=== PATIENT | male | born 1930 | race Caucasian/White ===

== ENCOUNTER 2016-11-29 11:26 | Inpatient (IN) | payer MEDICARE, OTHER ==
[~2016-11-29] VITALS: Ht 198.1 cm; Wt 160.0 kg
[2016-11-29] MEDS ORDERED: ARIC10TA PO (11:42)
[2016-11-29] MEDS ORDERED: CIAL2.5T PO (11:42)
[2016-11-29] MEDS ORDERED: ASPI-85 PO (11:42)
[2016-11-29] MEDS ORDERED: ZOCO20TA PO (11:42)
[2016-11-29] MEDS ORDERED: hytrin (11:42)
[2016-11-29] MEDS ORDERED: METF500T PO (11:42)
[2016-11-29] MEDS ORDERED: ZETI10TA2 PO (11:42)
[2016-11-29] MEDS ORDERED: METO50TA2 PO (11:42)
[2016-11-29] MEDS ORDERED: MEMA1TAB2 PO (11:42)
[2016-11-29] MEDS ORDERED: VITA200038 PO (11:42)
[2016-11-29] MEDS ORDERED: LISI40TAB PO (11:42)
[2016-11-29] MEDS ORDERED: [UNRECOGNIZED DRUG - CODE] PO (11:42)
[2016-11-29] MEDS ORDERED: FISH120012 PO (11:42)
[2016-11-29] MEDS ORDERED: ASPI32ECTA PO (11:43)
[2016-11-29 12:08] LABS: INR 1.3
[2016-11-29 12:12] LABS: DIFF SLIDE NUMBER 209; MEAN CORPUSCULAR HEMOGLOBIN 30.9 pg (27.0-33.0); MEAN CORPUSCULAR HGB CONC 30.9 g/dl (32.0-36.5); MEAN CORPUSCULAR VOLUME 100.1 fl (80.0-96.0); RED CELL DISTRIBUTION WIDTH 15.7 % (11.5-14.5); WHITE BLOOD COUNT 6.8 K/mm3 (4.0-10.0)
[2016-11-29 12:31] LABS: PLATELET COUNT, AUTOMATED 72 k/mm3 (150-450)
[2016-11-29 12:33] LABS: BASOPHILS 2 % (0-4); EOSINOPHILS 3 % (0-5)
[2016-11-29 12:34] LABS: OVALOCYTES 1+
--- NOTE | 2016-11-29 12:36 | REP ---
PORTABLE CHEST: No comparison. Single AP portable view of the chest is performed. There is cardiomegaly and vascular congestion. There may be some mild atelectasis/infiltrate in the right lung base. Multiple sternal wires are present. There is ectasia and tortuosity of the thoracic aort. IMPRESSION: Cardiomegaly and vascular congestion. Possible right basilar atelectasis/infiltrate. Signed by Kp Alcazar MD 11/29/2016 05:37 P
[2016-11-29 12:37] LABS: ALBUMIN/GLOBULIN RATIO 1.11 (1.00-1.93); ALKALINE PHOSPHATASE 187 U/L (45-117); ALT/SGPT 38 U/L (12-78); ANION GAP 5 MEQ/L (8-16); AST/SGOT 36 U/L (15-37); BILIRUBIN,DIRECT 0.4 MG/DL (0.0-0.2); BILIRUBIN,TOTAL 0.8 MG/DL (0.2-1.0); BLOOD UREA NITROGEN 31 MG/DL (7-18); CALCIUM LEVEL 8.4 MG/DL (8.8-10.2); CARBON DIOXIDE LEVEL 33 MEQ/L (21-32); CHLORIDE LEVEL 109 MEQ/L (98-107); CREATININE FOR GFR 1.21 MG/DL (0.70-1.30); GLOMERULAR FILTRATION RATE > 60.0 (>35); GLUCOSE, FASTING 178 MG/DL (83-110); POTASSIUM SERUM 4.4 MEQ/L (3.5-5.1); SODIUM LEVEL 147 MEQ/L (136-145); TOTAL PROTEIN 5.7 GM/DL (6.4-8.2)
[2016-11-29] MEDS ORDERED: FUROSEMIDE 40 MG/4 ML VIAL (J1940) IV ONE (14:45)
[2016-11-29] MEDS ORDERED: HEPARIN SOD (PORCINE) 5000 UNITS/ML VIAL SC SCH (15:00)
[2016-11-29] MEDS ORDERED: SOOTDRO2 OU (15:35)
[2016-11-29] MEDS ORDERED: TERB250T57 PO (15:35)
[2016-11-29] MEDS ORDERED: TERA10CA3 PO (15:35)
[2016-11-29] MEDS ORDERED: FURO40TA2 PO (15:35)
[2016-11-29] MEDS ORDERED: POTA20TA PO (15:35)
[2016-11-29] MEDS ORDERED: METO-207 PO (15:36)
[2016-11-29] MEDS ORDERED: DEXTROSE 50% 50 ML SYRINGE IV PRN (16:00)
[2016-11-29] MEDS ORDERED: GLUCOSE 4 GM CHEW TABLET PO PRN (16:00)
[2016-11-29] MEDS ORDERED: POLYVINYL ALCOHOL OPHTH SOLN 15 ML(LIQUITEARS) OU PRN (16:00)
[2016-11-29] MEDS ORDERED: AZITHROMYCIN 250 MG TAB PO ONE (16:00)
[2016-11-29] MEDS ORDERED: GLUCAGON FOR INJ 1 MG VIAL (J1610) SC PRN (16:00)
[2016-11-29 16:30] LABS: REASON FOR REVIEW COMPREHENSIVE REVIEW; RETIC HEMOGLOBIN CONTENT CHr 32.6 PG (24-36); RETICULOCYTE ABSOLUTE ADVIA212 66 x10(9)/L (17-77)
[2016-11-29 16:40] LABS: PERCENT SATURATION 15.1 % (19.7-37.4); TOTAL IRON BINDING CAPACITY 331 UG/DL (250-450)
--- NOTE | 2016-11-29 17:03 | REP ---
Bilateral lower extremity Duplex Doppler venous ultrasound: Real time compression and duplex Doppler interrogation of the bilateral lower extremity deep venous system is performed. Bilaterally, the common femoral, superficial femoral and popliteal veins are fully compressible with transducer pressure and demonstrate normal spontaneous and phasic flow, without evidence of deep venous thrombosis. Impression: No evidence of deep venous thrombosis of the bilateral lower extremity femoral popliteal venous system. The study is somewhat limited due to body habitus and edema, with distal femoral veins not well seen bilaterally. Signed by Kp Alcazar MD 11/29/2016 04:56 P
[2016-11-29] MEDS: cefTRIAXone SOD 2 GM in D5W MINI-BAG PLUS 50 ML IV SCH (17:18)
[2016-11-29] MEDS: HumaLOG INSULIN (NovoLOG) PER UNIT SC SCH ×2 (17:30→21:00)
--- NOTE | 2016-11-29 18:14 | HPE ---
DATE OF ADMISSION: 11/29/2016 PRIMARY CARE PHYSICIAN: None. ROOF MECHANIC: None. INPATIENT HOSPITALIST ATTENDING: Tomas Renner MD CHIEF COMPLAINT: Shortness of breath, lower extremity swelling. HISTORY OF PRESENTING ILLNESS: 86-year-old male with history of coronary artery disease (CAD), coronary artery bypass graft (CABG) successful 16 years ago, stent placement 10 years ago, BPH, obstructive sleep apnea (JAMIN), hypertension, diabetes, hypercholesterolemia, obesity, usually lives in [place] 3 months of the year, lives in [place] with no primary care physician or prover, has been having a 1 year history of increasing lower extremity edema with noncompliance with dietary salt intake and water intake. Has been in [place] in August, September, and October and just got back earlier this month with worsening lower extremity edema. Patient admits to eating out most of the time and has been bedridden for the past 1 month due to about a 50 pound weight gain at home in [place], unable to ambulate. Lower extremity edema has worsened and shortness of breath to the point that he is unable to get out of bed. He denies any chest pain, pressure or tightness. Denies any fever or chills, cough productive of sputum. Denies any nausea or vomiting or diarrhea. Appetite has been the same. Patient uses his continuous positive airway pressure (CPAP) at home. He is noncompliant with fluid restriction and salt intake and usually eats out with his second . She usually buys takeout food and gives it to him at home. In the emergency room (ER), he was found to have 3+ pitting edema, scrotal edema to the sacrum, BNP level of over 2000. Chest xray showing vascular congestion and possible right basilar atelectasis or infiltrate. Patient has recently seen his prover, was agreeable to taking Lasix twice a day with no significant improvement. On arrival to [place], patient had worsening symptoms prompting him to present to the emergency room for admission. PAST MEDICAL HISTORY: 1. CAD, CABG 16 years ago, 4 stents placed 10 years ago. 2. Hypertension. 3. Diabetes. 4. Obesity. 5. Hypercholesterolemia. 6. BPH. 7. Obstructive sleep apnea. 8. Transurethral resection of the prostate (TURP). 9. Dementia. PAST SURGICAL HISTORY: 1. CABG 16 years ago. 2. Stent placement 10 years ago. 3. Knee replacement. 4. Shoulder replacement. 5. TURP procedure. ALLERGIES: No known drug allergies. HOME MEDICATIONS: - aspirin 325 daily - vitamin D 2000 units daily - Aricept 10 twice a day - Zetia 10 daily - Lasix 40 daily - lisinopril 40 daily - metformin 500 mg daily - metoprolol 50 twice a day - Zocor 20 daily - eye solution - terazosin 10 nightly - terbinafine 250 daily SOCIAL HISTORY: Lives in [place] 3 months of the year. Lives in [place] with second . FULL CODE. 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 No history of cigarette use. No alcohol use. 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 FAMILY HISTORY: Noncontributory due to age. REVIEW OF SYSTEMS: 12-point system negative aside from positive findings on history of present illness (HPI). PHYSICAL EXAMINATION: Temperature 96.9, pulse 57, respiratory rate 22, blood pressure 160/74, 98% on 3 liters nasal cannula. Generally, patient is awake, alert, oriented to person, place, and time. He is answering questions appropriately. No respiratory distress or use of respiratory accessory muscles. No cyanosis. Pupils are round and reactive. Dry mucous membranes. Positive jugular venous distention. Bilateral rales chcf up. Diminished breath sounds. Heart S1, S2, sinus bradycardia. No murmurs or rubs. Abdomen is obese, soft, nontender, nondistended. Extremities 3+ pitting edema to the sacrum. Multiple excoriations bilateral lower extremities. Scrotal edema and pressure erythematous area on the sacrum. Multiple erythematous areas. Moist areas under abdominal folds. EKG: Sinus rhythm, ventricular rate of 49, low QRS in precordial leads, septal myocardial infarction (OK), probably old, OH interval 156. LABORATORY DATA: White count 6.8, hemoglobin 10.9, hematocrit 35, platelet count 72. Sodium 147, potassium 4.4, chloride 109, bicarbonate 33, BUN 31, creatinine 1.2, glucose 178, lactic acid 2.3, magnesium 2.3, BNP 483, calcium 8.4. Chest xray: Cardiomegaly, vascular congestion, mild atelectasis/infiltrate at the right base, multiple sternal wires, there is ectasia and tortuosity of the thoracic aorta. ASSESSMENT AND PLAN: This is an 86-year-old male with history of dementia, diabetes, hypertension, history of coronary artery disease (CAD), coronary artery bypass graft (CABG), four stents, obesity, obstructive sleep apnea on continuous positive airway pressure (CPAP), follows with a prover in [place], no primary care physician or prover in [place], presents with 1 year history of worsening lower extremity edema and weight gain, has been bed bound for the past 1 month, admits to dietary indiscretion with salt and water intake, mostly eating out and eating takeout food, now presents with difficulty ambulating due to worsening lower extremity edema and shortness of breath, found to have congestive heart failure, at this time patient will be admitted for congestive heart failure (CHF), new onset. CURRENT ISSUES: 1. Congestive heart failure, unknown ejection fraction. Patient has a prover in [place], will obtain the records. Patient will be admitted to progressive care unit (PCU). Cardiac markers every 6 hours. Patient will be treated with Lasix 40 mg IV every 4 hours with fluid restriction of 1.5 liters. Strict intake and output. Fuentes catheter to gravity. Exacerbating factor may be fluid noncompliance as well as salt noncompliance. Patient admits to eating out most of the week as well as not being on Lasix until about a month ago. At this time will rule out acute infectious etiology. Treat with antibiotics for possible right basilar infiltrate. Check a sputum culture, respiratory panel, as well as urine Legionella and Streptococcal antigens. Echocardiogram, cardiac markers, and 12-lead EKG due to history of coronary artery bypass graft (CABG) and previous stents. Monitor for significant arrhythmia. Repeat 12-lead EKG due to sinus bradycardia. Monitor for heart block and may require pacemaker if persistently below 40 or symptomatic. 2. Abnormal EKG with sinus bradycardia. Repeat 12-lead EKG. Rule out heart block. Patient may need a pacemaker and cardiac referral. Continue to monitor for now. Check thyroid stimulating hormone (TSH) level. 3. Hypertension, uncontrolled. Resume home medication, lisinopril, hold off on beta blockade due to persistent bradycardia. 4. Hypercholesterolemia. Continue on simvastatin. Check a lipid profile in the morning and thyroid stimulating hormone (TSH) level. 5. Lower extremity edema, most likely secondary to congestive heart failure (CHF). Unknown ejection fraction. Check bilateral lower extremities for deep venous thrombosis (DVT) with venous Dopplers of the lower extremities. 6. Right basilar infiltrate. Antibiotics with IV ceftriaxone and azithromycin. Monitor for prolonged QT. 7. Anemia and thrombocytopenia. Check peripheral blood smear, reticulocyte count, iron studies, and stool for blood. No acute indication for red blood cell transfusion. Check heparin-induced antibody. 8. Deep venous thrombosis (DVT) prophylaxis with Lovenox. 9. Code status: FULL CODE. 10. Dementia. Continue on Aricept. Patient will be assigned to Dr. Tomas Renner at 10 p.m. on 11/29/2016.
[2016-11-29] MEDS: ENOXAPARIN 30 MG/0.3 ML SYR (J1650) SC SCH (18:31)
[2016-11-29 18:47] LABS: ANION GAP 4 MEQ/L (8-16); BLOOD UREA NITROGEN 30 MG/DL (7-18); CALCIUM LEVEL 8.5 MG/DL (8.8-10.2); CARBON DIOXIDE LEVEL 35 MEQ/L (21-32); CHLORIDE LEVEL 107 MEQ/L (98-107); CREATININE FOR GFR 1.09 MG/DL (0.70-1.30); GLOMERULAR FILTRATION RATE > 60.0 (>35); GLUCOSE, FASTING 112 MG/DL (83-110); MAGNESIUM LEVEL 2.4 MG/DL (1.8-2.4); POTASSIUM SERUM 4.5 MEQ/L (3.5-5.1); SODIUM LEVEL 146 MEQ/L (136-145)
[2016-11-29 20:50] VITALS: BP 138/58
[2016-11-29] MEDS ORDERED: MICONAZOLE 2 % POWDER (DESENEX) TOP SCH (21:00)
[2016-11-29] MEDS ORDERED: DONEPEZIL 5 MG TAB PO SCH (21:00)
--- NOTE | 2016-11-29 21:09 | ECGEPIP ---
Stationary ECG Study [facility] Test Date: 2016-11-29 Pat Name: ORQUIDEA HERNANDEZ Department: Room: [place] [address] Gender: M Change Of Address Clerk: : 1930 Requested By: NAVDEEP Aggarwal Order Number: [id number] Reading MD: [place] [address] Measurements Intervals [place] Rate: 55 P: -5 CA: 155 QRS: 16 QRSD: 106 T: 134 QT: 484 QTc: 464 Interpretive Statements Sinus bradycardia Low voltages with poor precordial R-wave progression Body habitus versus pulmonary disease Rule out prior septal injury. Diffuse ST/T-wave abnormalities with QT prolongation No prior tracing for comparison. Clinical correlation advised. Electronically Signed On 11-29-2016 21:08:[address]
[2016-11-29] MEDS: NYSTATIN 100,000 UNITS/GM TOPICAL PWD 15 GM TOP SCH (22:20)
[2016-11-29] MEDS: TERAZOSIN 5 MG CAP PO SCH (22:21)
[2016-11-29] MEDS: FUROSEMIDE 40 MG/4 ML VIAL (J1940) IV SCH (22:22)
[2016-11-29 23:59] VITALS: BP 138/64
[2016-11-30] MEDS: FUROSEMIDE 40 MG/4 ML VIAL (J1940) IV SCH ×6 (00:12→20:00)
[2016-11-30] MEDS ORDERED: ATROPINE SULF 1MG/10ML SYRINGE (J0461) IV PRN (01:30)
[2016-11-30 04:00] VITALS: BP 124/58
[2016-11-30 05:09] LABS: MEAN CORPUSCULAR HEMOGLOBIN 31.3 pg (27.0-33.0); MEAN CORPUSCULAR HGB CONC 31.4 g/dl (32.0-36.5); MEAN CORPUSCULAR VOLUME 99.9 fl (80.0-96.0); RED CELL DISTRIBUTION WIDTH 15.4 % (11.5-14.5)
[2016-11-30 05:31] LABS: ANION GAP 4 MEQ/L (8-16); BLOOD UREA NITROGEN 30 MG/DL (7-18); CALCIUM LEVEL 8.2 MG/DL (8.8-10.2); CARBON DIOXIDE LEVEL 37 MEQ/L (21-32); CHLORIDE LEVEL 107 MEQ/L (98-107); CHOLESTEROL LEVEL 67 MG/DL (<200); CREATININE FOR GFR 1.17 MG/DL (0.70-1.30); GLOMERULAR FILTRATION RATE > 60.0 (>35); GLUCOSE, FASTING 98 MG/DL (83-110); POTASSIUM SERUM 4.3 MEQ/L (3.5-5.1); SODIUM LEVEL 148 MEQ/L (136-145); TRIGLYCERIDES LEVEL 32 MG/DL (<150)
[2016-11-30 07:06] LABS: T UPTAKE 35 % (33-40); THYROXINE (T4) 6.4 UG/DL (4.5-12.0)
[2016-11-30] MEDS: HumaLOG INSULIN (NovoLOG) PER UNIT SC SCH ×4 (07:30→21:00)
[2016-11-30 08:00] VITALS: BP 125/60
--- NOTE | 2016-11-30 08:31 | ECGEPIP ---
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
[2016-11-30] MEDS: SIMVASTATIN 20 MG TAB PO SCH (08:39)
[2016-11-30] MEDS: EZETIMIBE 10 MG TAB (ZETIA) PO SCH (08:39)
[2016-11-30] MEDS: LISINOPRIL 40 MG TAB PO SCH (08:39)
[2016-11-30] MEDS: ASPIRIN ENTERIC 325 MG TAB PO SCH (08:39)
[2016-11-30] MEDS: VITAMIN D 1,000 INTERNATIONAL UNITS TABLET PO SCH (08:39)
[2016-11-30] MEDS: NYSTATIN 100,000 UNITS/GM TOPICAL PWD 15 GM TOP SCH ×2 (08:40→21:43)
[2016-11-30] MEDS ORDERED: AZITHROMYCIN 250 MG TAB PO SCH (09:00)
[2016-11-30] MEDS ORDERED: TERBINAFINE 250 MG TABLET PO SCH (09:00)
[2016-11-30 12:00] VITALS: BP 128/68
--- NOTE | 2016-11-30 12:57 | CR ---
DATE OF CONSULTATION: 11/30/2016 REFERRING PHYSICIAN: Dr. Srinivasan and Dr. Renner. INDICATION: Congestive heart failure, bradycardia. HISTORY OF PRESENT ILLNESS: Mr. Gracia was admitted to [facility] on 11/29/2016 because of progressive edema. He has a history of coronary artery disease with remote history of CABG and later PCI, and has been followed by his glue maker in [place]. His primary care physician in [facility] is Dr. Dupont. He usually spends 9 months in [facility] and 3 months in [place], and they just came back last week. According to his , he has had peripheral edema for years, but she believes that in the last week or so the situation got quite a bit worse. She actually took him to see his glue maker in [place]. He increased the dose of Lasix and he was seen by some supervisor garage for swelling and redness of right upper extremity and apparently was diagnosed with lymphedema. He was started on antimicrobial medications but the swelling continues to deteriorate. After their arrival, she called Dr. Dupont and eventually was referred to hospital for admission. He was found to be in anasarca and was admitted for management of congestive heart failure. He has been fairly bradycardic. Last night, his heart rate dropped into mid 30s, at times in sinus bradycardia. There were no long pauses and I was asked to see the patient. At the time of my evaluation, he feels relatively comfortable but he does admit that the peripheral edema and shortness of breath have been limiting for quite some time. He denies any chest pain, palpitations. There have not been any recent illness. There has not been any diarrhea, nausea or vomiting, or any signs to suggest viral illness. There is no a unusual change in his diet or routine. He has been pretty much sedentary for years and has been walking only with a walker or very rarely with a cane. PAST MEDICAL HISTORY: 1. Coronary artery disease. CABG in 1998. He subsequently had coronary intervention approximately 6 or 7 years later. No records are available. 2. Type 2 diabetes. 3. Hypertension. 4. BPH. 5. Dementia. 6. Obstructive sleep apnea (JAMIN) on continuous positive airway pressure (CPAP). 7. Dyslipidemia. Surgical history is positive for cataract surgery, transurethral resection of prostate, CABG, knee replacement and left shoulder replacement. OUTPATIENT MEDICATIONS: - aspirin - vitamin D - Aricept 10 mg twice a day - Zetia 10 mg a day - Lasix 40 mg a day - lisinopril 40 mg a day - metformin 500 twice a day - metoprolol 50 twice a day - Zocor 20 - terazosin 10 - terbinafine SOCIAL HISTORY: Patient is with his second . They live together and spend time between [facility] and [place] as above. He never smoked. There is no significant alcohol use. 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 FAMILY HISTORY: Father of suicide at the age of 41. His mother of stroke in her 70s. REVIEW OF SYSTEMS: There is no history of stroke that we know off. There is no history of heart attack as such. Denies any paroxysmal nocturnal dyspnea (PND), orthopnea, but he has been sleeping with continuous CPAP. No recent chest pain. He denies any history of syncope or near syncope. No diarrhea, nausea, vomiting. Besides prostate problem, no known renal disease. 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 No pains in his spine or orthopedic problem with his very limited lifestyle. PHYSICAL EXAMINATION: Mr. Gracia is an elderly man. He appears approximately his age. He is a very large man and it is obvious that one day he used to be quite muscular. Blood pressure 125/60. Heart rate is principally in 50s during the day. He is afebrile. Saturation 97% on 2 liters of oxygen by nasal cannula. His jugular venous pulse (JVP) is about 15 cm above clavicle in semi-sitting position. Lungs reveal bilateral crackles. Air movement is fair. His heart exam reveals very muffled heart sound due to obesity and anasarca. I do not appreciate a distinct gallop, rub or murmur. Abdomen is massively swollen. I am unable to estimate size of liver or spleen. No obvious shifting dullness, but due to his very prominent cutaneous swelling it probably would not be possible to ascertain. There is 5+ edema that goes all the way from his toes to the level of the chest and involves both upper extremities. His shoulders are above the line of swelling LABORATORY DATA: As of today, basic metabolic panel reveals potassium 4.3, sodium 148, BUN 30, creatinine 1.2, glucose 98, calcium is 8.2. Lipids revealed total cholesterol 67, triglycerides 32, LDL of 20 and HDL of 40. TSH is 4.3 and calcium is 8.2. CBC: Hemoglobin 10 and hematocrit 34, platelet count only 63,000. INR is 1.3. He has heparin-induced antibodies pending. Urine for Legionella strep pneumonia antigen is pending. Urinalysis is negative for protein. He has two ECGs both of which reveal sinus bradycardia with poor R-wave progression and nonspecific ST-T abnormalities and slight QT prolongation. He had lower extremity Doppler that was negative for DVT, but quality was limited on account of his large size. Chest x-ray reveals cardiomegaly and congestive heart failure with possible right lower lobe infiltrate. ASSESSMENT AND PLAN: Mr. Gracia is an 86-year-old man that presents with anasarca. I have to admit that this level of volume overload I have not seen in the years. I estimate that he has at least 30 and possibly as much as 50 pounds of excess water. The principal treatment at this time would be diuresis as is being done. I am going to add to his laboratory profile a daily magnesium because with this massive of a diuresis he certainly will be prone to arrhythmias. For the same reason, I discontinued his terbinafine because it as an agent that has been shown to prolong QT interval and I am particularly worried about this scenario in setting of bradycardia. I am not aware what is his ejection fraction. He will get an echocardiogram. Unfortunately, I do assume that the quality will be limited and may not be totally helpful. I am also requesting records from his glue maker in [place]. As far as bradycardia is concerned, obviously the metoprolol was discontinued. I also agree with discontinuation of his medications for Alzheimer disease that often can contribute. I suspect that his last night bradycardia was at least in part due to the fact that he did not have a CPAP. But his brought it in so he will sleep with CPAP today. So far I have not seen anything to indicate that he is in need of pacemaker, but I spoke with the patient and his family and explained to them that if we see more serious degree of bradycardia he may need a pacemaker placement. As far as the choices of antibiotics are concerned, I would advocate to stay away from antibiotics known to prolonged QT interval and as such, I recommend not to use Zithromax and quinolones. I am not completely convinced that he is infected and I suspect the abnormality on the chest x-ray is more likely to be all due to congestive heart failure. Last issue, which is somewhat perplexing, is his degree of thrombocytopenia. His HIT antibodies are pending. He is still receiving Lovenox though. It is unlikely that he would have dropped platelets this rapidly unless he had some antibodies previously. I think it probably would be appropriate though to discontinue the Lovenox and use alternative medications for DVT prophylaxis either in the form of Eliquis or possibly fondaparinux. WENDI
[2016-11-30 16:00] VITALS: BP 134/64
[2016-11-30] MEDS: ENOXAPARIN 30 MG/0.3 ML SYR (J1650) SC SCH (17:46)
[2016-11-30] MEDS: cefTRIAXone SOD 2 GM in D5W MINI-BAG PLUS 50 ML IV SCH (17:47)
--- NOTE | 2016-11-30 18:25 | IPNPDOC ---
Subjective Date Seen The patient was seen on 11/30/16. Subjective Chief Complaint/HPI The patient is a 86-year-old male admitted with a reason for visit of Acute Congestion Heart Failure. General: Reports: Malaise, Denies: Chills, Fatigue, Night Sweats, Normal Appetite, Other Symptoms, ROS Unobtainable Constitutional: Denies: Chills, Fatigue, Fever, Lethargy, Malaise, Night Sweats , Other, Weakness, Weight Loss Eyes: Denies: Conjunctivae inflammation, Eyelid inflammation, Other, Pain, Redness, Vision change ENT: Denies: Dysphagia, Ear Pain, Epistaxis, Head Aches, Other Symptoms, Post Nasal Drip, Sinus Congestion, Sore Throat Skin: Denies: Breakdown, Bruising, Dry, Itching, Jaundice, Lesions, Nail Changes, Other, Rash Pulmonary: Reports: Dyspnea, Denies: Cough, Other Symptoms, Pleuritic Chest Pain Gastrointestinal: Denies: Abdominal Pain, Constipation, Diarrhea, Hematochezia , Melena, Nausea, Other Symptoms, Vomiting Genitourinary: Reports: Hematuria, Denies: Dysuria, Frequency, Incontinence, Other Symptoms, Retention Hematologic: Denies: Bleeding Excessively, Bruising, Enlarged Lymph Nodes, Other Hematologic, Petecchia, Purpura Musculoskeletal: Denies: Arm Pain, Back Pain, Foot Pain, Hand Pain, Joint Pain , Leg Pain, Muscle Pain, Neck Pain, Other Symptoms, Shoulder Pain, Spasms Neurological: Denies: Change in speech, Confusion, Incoordination, Numbness, Other Symptoms, Seizures, Weakness Objective Physical Examination General Exam: Positive: Alert, Cooperative, No Acute Distress Eye Exam: Positive: Conjunctiva & lids normal, EOMI, PERRLA, Negative: Sclera icteric ENT Exam: Positive: Atraumatic Neck Exam: Positive: JVD, Other, Supple Chest Exam: Positive: Diminished, Negative: Clear to auscultation Heart Exam: Positive: Bradycardic, Regular Rhythm Telemetry: Positive: Bradycardia, No significant arrhythmia Abdomen Exam: Positive: Normal bowel sounds, Other (morbidly obese), Soft, Negative: Tenderness Extremity Exam: Positive: Edema Psych Exam: Positive: Oriented x 3 Assessment /Plan Problems (1) Bradycardia Status: Acute Discussed With: Robotics Technologist, Patient Problem Specific Plan: Consult Specialist, Monitor Clinically (2) Acute congestive heart failure Status: Acute Discussed With: Robotics Technologist, Patient Problem Specific Plan: Consult Specialist, Monitor Clinically, Repeat Labs, Repeat Tests Problem Text: i/o's, daily weight diuresis with lasix cardiology consultation pending, assistance appreciated (3) CAD (coronary artery disease) Status: Chronic Discussed With: Patient Problem Text: s/p cabg 2000, stents 2006 continue asa, metoprolol, lisinopril (4) HTN (hypertension) Status: Chronic Discussed With: Patient Problem Specific Plan: Monitor Clinically Problem Text: continue lisinopril, metoprolol (5) Diabetes Status: Chronic Discussed With: Patient Problem Specific Plan: Repeat Labs Problem Text: metformin on hold insulin sliding scale, modified diet (6) Obesity Status: Chronic Discussed With: Patient Problem Specific Plan: Monitor Clinically Problem Text: further complicating factor to his medical care (7) Dyslipidemia Status: Chronic Problem Text: continue zetia, zocor (8) BPH (benign prostatic hyperplasia) Status: Chronic Discussed With: Patient Problem Specific Plan: Monitor Clinically Problem Text: s/p turp, continue terazosin alfreod catheter in place hematuria noted in alfredo bag reported difficult alfredo insertion continue to monitor (9) JAMIN (obstructive sleep apnea) Status: Chronic Discussed With: Patient Problem Text: compliant with cpap (10) Dementia Status: Chronic Discussed With: Patient Problem Specific Plan: Monitor Clinically (11) Non-compliance Status: Chronic Discussed With: Patient Problem Text: Stated he has not been taking his medications as instructed. Also stated he has not been complying with dietary restrictions. (12) Thrombocytopenia Status: Acute Discussed With: Patient Problem Specific Plan: Monitor Clinically, Repeat Labs, Repeat Tests Problem Text: Peripheral smear pending. Will check EDTA free sample. Avoid heparin products. Plan/VTE VTE Prophylaxis Ordered?: No VTE Exclusion Pharmacological: Thrombocytopenia Plan/Urinary Catheter Reason for insertion/continuin: Critical Pt monitoring Plan Diet: Continue Current Activity: Continue Current Medications: Replete Electrolytes IV, Taper Antibiotics Respiratory: Wean Oxygen Diagnostics: Repeat Labs in AM VS, I&O, 24H, [place] Vital Signs/I&O Vital Signs Date Time Temp Pulse Resp B/P Pulse Ox O2 Delivery O2 Flow Rate FiO2 11/30/16 08:00 96.5 54 22 125/60 97 Nasal Cannula 2.0 I&O- Last 24 Hours up to 6 AM 11/30/16 06:00 Intake Total 410 ml Output Total 5750 ml Balance -5340 ml Laboratory Data 24H LABS Laboratory Tests 2 11/29/16 11:48: Absolute Reticulocyte Count 66, Aspartate Amino Transf (AST/SGOT) 36, Alanine Aminotransferase (ALT/SGPT) 38, Alkaline Phosphatase 187H, Total Bilirubin 0.8, Direct Bilirubin 0.4H, Albumin 3.0L, Albumin/Globulin Ratio 1.11, Anion Gap 5L, Atypical Lymphocytes 1, B-Type Natriuretic Peptide 483H, Basophils (Manual) 2, Calcium Level 8.4L, Creatine Kinase MB 2.5, Creatine Kinase MB Relative Index 3.67, Differential Pathologist's Review COMPREHENSIVE REVIEW, Differential Slide Review Report, Eosinophils (Manual) 3, Estimated Mean Plasma Glucose 131H , Glomerular Filtration Rate > 60.0, Hemoglobin A1c 6.2, Iron Level 50L, Lymphocytes (Manual) 43, Macrocytosis 1+, Magnesium Level 2.3, Monocytes (Manual ) 7, Neutrophils 44, Ovalocytes 1+, Percent Reticulocyte Count 1.80H, Peripheral Blood Smear Path Consult PERIPHERAL SMEAR, Platelet Estimate DECREASED, Prothromb Time International Ratio 1.30, Prothrombin Time 16.3H, Reticulocyte Hgb Content (CHr) 32.6, Thyroid Stimulating Hormone (TSH) 3.500, Total Creatine Kinase 68, Total Iron Binding Capacity 331, Total Protein 5.7L, Transferrin % Saturation 15.1L, Troponin I 0.04 11/29/16 12:07: Lactic Acid Level 2.3*H 11/29/16 16:18: Lactic Acid Followup at 4 Hours 1.3 11/29/16 17:46: Bedside Glucose (Misc Panel) 98 11/29/16 18:00: Anion Gap 4L, Blood Urea Nitrogen 30H, Creatinine 1.09, Sodium Level 146H, Potassium Level 4.5, Chloride Level 107, Carbon Dioxide Level 35H, Calcium Level 8.5L, Total Creatine Kinase 77, Creatine Kinase MB 2.9, Creatine Kinase MB Relative Index 3.76, Glomerular Filtration Rate > 60.0, Magnesium Level 2.4, Troponin I 0.04 11/29/16 21:02: 11/29/16 21:05: 11/29/16 21:43: Bedside Glucose (Misc Panel) 125H 11/29/16 23:28: Creatine Kinase MB 2.9, Creatine Kinase MB Relative Index 4.60H, Total Creatine Kinase 63, Troponin I 0.03# 11/30/16 04:34: Anion Gap 4L, Calcium Level 8.2L, Triglycerides Level 32, Cholesterol Level 67, HDL Cholesterol 40, LDL Cholesterol 20.6, Cholesterol/HDL Ratio 1.675, Free Thyroxine Index 2.2, Glomerular Filtration Rate > 60.0, Non-HDL Cholesterol ( LDL + VLDL) 27, Thyroid Stimulating Hormone (TSH) 4.300H, Thyroxine (T4) 6.4, Triiodothyronine (T3) Uptake 35 CBC/BMP Laboratory Tests 11/29/16 11:48 Red Blood Count 3.54 L, Mean Corpuscular Volume 100.1 H, Mean Corpuscular Hemoglobin 30.9, Mean Corpuscular Hemoglobin Concent 30.9 L, Red Cell Distribution Width 15.7 H 11/29/16 18:00 Calcium Level 8.5 L, Total Creatine Kinase 77 11/30/16 04:34 Red Blood Count 3.44 L, Mean Corpuscular Volume 99.9 H, Mean Corpuscular Hemoglobin 31.3, Mean Corpuscular Hemoglobin Concent 31.4 L, Red Cell Distribution Width 15.4 H Microbiology Microbiology 11/29/16 Blood Culture, Received Pending 11/29/16 Blood Culture, Ordered Pending AFRICA CAVANAUGH MD Nov 30, 2016 10:59
[2016-11-30 20:00] VITALS: BP 137/66
[2016-11-30] MEDS: TERAZOSIN 5 MG CAP PO SCH (21:43)
[2016-11-30 23:59] VITALS: BP 129/61
[2016-12-01] MEDS: FUROSEMIDE 40 MG/4 ML VIAL (J1940) IV SCH ×7 (00:15→23:51)
[2016-12-01 04:00] VITALS: BP 153/70
[2016-12-01 05:49] LABS: BASO % 0.3 % (0.0-1.0); EOS # 0.3 K/mm3 (0.0-0.50); EOS % 4.1 % (0.0-3.0); LARGE UNSTAINED CELL # 0.3 K/mm3 (0.0-0.4); LARGE UNSTAINED CELL % 4.9 % (0.0-4.0); LYMPH # 3.1 K/mm3 (1.5-4.5); LYMPH % 41.6 % (24.0-44.0); MEAN CORPUSCULAR HEMOGLOBIN 30.4 pg (27.0-33.0); MEAN CORPUSCULAR HGB CONC 30.8 g/dl (32.0-36.5); MEAN CORPUSCULAR VOLUME 98.6 fl (80.0-96.0); MONO # 0.5 K/mm3 (0.0-0.8); MONO % 8.1 % (0.0-5.0); NEUTROPHILS # 2.7 K/mm3 (1.8-7.7); NEUTROPHILS % 41.1 % (36.0-66.0); PLATELET COUNT, AUTOMATED 80 k/mm3 (150-450); RED CELL DISTRIBUTION WIDTH 15.7 % (11.5-14.5); WHITE BLOOD COUNT 6.7 K/mm3 (4.0-10.0)
[2016-12-01 06:02] LABS: ALBUMIN 2.8 GM/DL (3.2-5.2); ALBUMIN/GLOBULIN RATIO 1.04 (1.00-1.93); ALKALINE PHOSPHATASE 184 U/L (45-117); ALT/SGPT 30 U/L (12-78); ANION GAP 6 MEQ/L (8-16); AST/SGOT 29 U/L (15-37); BILIRUBIN,TOTAL 0.6 MG/DL (0.2-1.0); BLOOD UREA NITROGEN 28 MG/DL (7-18); CALCIUM LEVEL 8.2 MG/DL (8.8-10.2); CARBON DIOXIDE LEVEL 36 MEQ/L (21-32); CHLORIDE LEVEL 105 MEQ/L (98-107); CREATININE FOR GFR 1.11 MG/DL (0.70-1.30); GLOMERULAR FILTRATION RATE > 60.0 (>35); GLUCOSE, FASTING 92 MG/DL (83-110); MAGNESIUM LEVEL 2.1 MG/DL (1.8-2.4); POTASSIUM SERUM 4.1 MEQ/L (3.5-5.1); SODIUM LEVEL 147 MEQ/L (136-145); TOTAL PROTEIN 5.5 GM/DL (6.4-8.2)
--- NOTE | 2016-12-01 06:41 | ECHO ---
DATE OF PROCEDURE: 11/30/2016 INDICATION: Congestive heart failure. REFERRING PHYSICIAN: Dr. Ordonez. HEIGHT: 66 inches. WEIGHT: 345 pounds. DIMENSIONS: IVS: 1.5 LV: 7.1 LVPW: 1.6 LA: 6.5 AORTA: 4.7 RV: 4.7 LV SYSTOLIC: 4.6 Mitral inflow E wave velocity 75 cm/sec. Septal E prime velocity 8.1 cm/sec. E prime velocity 7.0 cm/sec. FINDINGS: Study is of markedly limited technical quality corresponding to patient's body habitus. Left ventricle is severely dilated. He appears to have grossly preserved contractility even though visualization is poor and I could have easily missed even substantial wall motion abnormalities. Right ventricle also appears dilated and hypokinetic. Left atrium is severely enlarged. Right atrium is also enlarged. Aortic valve appears relatively normal for patient's age. Same applies for mitral and tricuspid valves. Pulmonic valve was not seen. There is no pericardial effusion. Inferior vena cava is dilated and there is no appreciable collapse with respiration indicative of very high central venous pressure. Aortic root is dilated at 4.7 cm. Aortic arch was poorly seen. Abdominal aorta was not seen at all. Doppler interrogation reveals no significant aortic or mitral valve disease. There is mild tricuspid insufficiency. Calculated pulmonary artery pressure is at least around 50 mmHg or higher which indicates at minimum moderate pulmonary hypertension. Pulmonic valve exhibits mild insufficiency. Evaluation of diastolic function based on mitral inflow pattern and tissue Doppler imaging of mitral annulus reveal grade 2 diastolic dysfunction. CONCLUSIONS: 1. Study is of very limited technical quality. 2. Severely dilated left ventricle with moderate left ventricular hypertrophy but overall probably relatively preserved LV systolic function. Based on poor quality images, even substantial wall motion abnormalities could have been easily missed. 3. Dilated right ventricle. 4. Severe biatrial enlargement. 5. Very high central venous pressure and at least moderate pulmonary hypertension. COMMENTS: Subacute bacterial endocarditis (SBE) prophylaxis is not recommended.
[2016-12-01 06:51] LABS: GAMMA GLUTAMYLTRANSPEPTIDASE 75 U/L (15-85)
[2016-12-01] MEDS: HumaLOG INSULIN (NovoLOG) PER UNIT SC SCH ×4 (07:30→20:51)
[2016-12-01 07:41] LABS: PLTBLUE- EDTA FREE CALC 21 K/mm3 (172-450); PLTBLUE- EDTA FREE MACHINE 19 k/mm3 (172-450)
[2016-12-01 08:00] VITALS: BP 148/67
--- NOTE | 2016-12-01 09:57 | IPNPDOC ---
Subjective Date Seen The patient was seen on 12/01/16. Subjective Chief Complaint/HPI The patient is a 86-year-old male admitted with a reason for visit of Acute Congestion Heart Failure. Events since last encounter No complaints today. General: Denies: Chills, Fatigue, Malaise, Night Sweats, Normal Appetite, Other Symptoms, ROS Unobtainable Constitutional: Denies: Chills, Fatigue, Fever, Lethargy, Malaise, Night Sweats , Other, Weakness, Weight Loss Eyes: Denies: Conjunctivae inflammation, Eyelid inflammation, Other, Pain, Redness, Vision change ENT: Denies: Dysphagia, Ear Pain, Epistaxis, Head Aches, Other Symptoms, Post Nasal Drip, Sinus Congestion, Sore Throat Skin: Denies: Breakdown, Bruising, Dry, Itching, Jaundice, Lesions, Nail Changes, Other, Rash Pulmonary: Denies: Cough, Dyspnea, Other Symptoms, Pleuritic Chest Pain Cardiovascular: Denies: Chest Pain, Edema, Lt Headedness, Orthopnea, Other Symptoms, Palpitations, Paroxysmal Noc. Dyspnea Gastrointestinal: Denies: Abdominal Pain, Constipation, Diarrhea, Hematochezia , Melena, Nausea, Other Symptoms, Vomiting Genitourinary: Denies: Dysuria, Frequency, Hematuria, Incontinence, Other Symptoms, Retention Objective Physical Examination General Exam: Positive: Alert, Cooperative, No Acute Distress Eye Exam: Positive: Conjunctiva & lids normal, EOMI, PERRLA, Negative: Sclera icteric ENT Exam: Positive: Atraumatic Neck Exam: Positive: JVD, Other, Supple Chest Exam: Positive: Diminished, Negative: Clear to auscultation Heart Exam: Positive: Bradycardic, Regular Rhythm Telemetry: Positive: Bradycardia, No significant arrhythmia Abdomen Exam: Positive: Normal bowel sounds, Other (morbidly obese), Soft, Negative: Tenderness Extremity Exam: Positive: Edema (signficant lower extremity edema to sacrum) Psych Exam: Positive: Oriented x 3 Assessment /Plan Problems (1) Acute congestive heart failure Status: Acute Response to Treatment: Uncompensated, Progressing Discussed With: Revenue Accounting Manager, Patient Problem Specific Plan: Consult Specialist, Monitor Clinically, Repeat Labs, Repeat Tests Problem Text: i/o's, daily weight diuresis with lasix cardiology consultation pending, assistance appreciated (2) Thrombocytopenia Status: Acute Response to Treatment: Progressing Discussed With: Patient Problem Specific Plan: Monitor Clinically, Repeat Labs, Repeat Tests Problem Text: Peripheral smear pending. EDTA free sample surprisingly much lower than EDTA sample. Will repeat CBC with EDTA free this evening. Hold off on transfusion for now as true platelet count still undetermined. Likely secondary to hepatic congestion from severe decomp CHF/volume overload. Appears to possibly run chronically low from previous laboratory results. HIT antibiody pending. D/W heme/onc. Avoid heparin products. (3) Bradycardia Status: Acute Discussed With: Revenue Accounting Manager, Patient Problem Specific Plan: Consult Specialist, Monitor Clinically (4) CAD (coronary artery disease) Status: Chronic Discussed With: Patient Problem Text: s/p cabg 2000, stents 2006 continue asa, metoprolol, lisinopril (5) HTN (hypertension) Status: Chronic Discussed With: Patient Problem Specific Plan: Monitor Clinically Problem Text: continue lisinopril, metoprolol (6) Diabetes Status: Chronic Discussed With: Patient Problem Specific Plan: Repeat Labs Problem Text: metformin on hold insulin sliding scale, modified diet (7) Obesity Status: Chronic Discussed With: Patient Problem Specific Plan: Monitor Clinically Problem Text: further complicating factor to his medical care (8) Dyslipidemia Status: Chronic Problem Text: continue zetia, zocor (9) BPH (benign prostatic hyperplasia) Status: Chronic Discussed With: Patient Problem Specific Plan: Monitor Clinically Problem Text: s/p turp, continue terazosin alfredo catheter in place hematuria noted in alfredo bag reported difficult alfredo insertion continue to monitor (10) AJMIN (obstructive sleep apnea) Status: Chronic Discussed With: Patient Problem Text: compliant with cpap (11) Dementia Status: Chronic Discussed With: Patient Problem Specific Plan: Monitor Clinically (12) Non-compliance Status: Chronic Discussed With: Patient Problem Text: Further complicating factor to his medical care. Plan/VTE VTE Prophylaxis Ordered?: No VTE Exclusion Pharmacological: Thrombocytopenia Plan/Urinary Catheter Reason for insertion/continuin: Critical Pt monitoring Plan Diet: Continue Current Activity: Continue Current Medications: Replete Electrolytes IV, Taper Antibiotics Respiratory: Wean Oxygen Diagnostics: Repeat Labs in AM Continue with diuresis. Monitor electrolytes. Repeat CBC/platelet count pending. Discussed with heme/onc. Consent has been obtained if transfusion needed. Monitor hematuria - likely from traumatic alfredo. UA pending, CT a/p pending. VS, I&O, 24H, Fishbone Vital Signs/I&O Vital Signs Date Time Temp Pulse Resp B/P Pulse Ox O2 Delivery O2 Flow Rate FiO2 12/01/16 08:00 97.1 73 18 148/67 97 Room Air 11/30/16 12:00 2.0 I&O- Last 24 Hours up to 6 AM 12/01/16 05:59 Intake Total 1200 ml Output Total 3850 ml Balance -2650 ml Laboratory Data 24H LABS Laboratory Tests 2 11/30/16 12:52: Bedside Glucose (Misc Panel) 167H 11/30/16 16:58: Bedside Glucose (Misc Panel) 92 11/30/16 21:33: Bedside Glucose (Misc Panel) 99 12/01/16 04:52: Blood Urea Nitrogen 28H, Creatinine 1.11, Sodium Level 147H, Potassium Level 4.1 , Chloride Level 105, Carbon Dioxide Level 36H, Calcium Level 8.2L, Aspartate Amino Transf (AST/SGOT) 29, Alanine Aminotransferase (ALT/SGPT) 30, Gamma Glutamyl Transpeptidase 75, Alkaline Phosphatase 184H, Total Bilirubin 0.6, Total Protein 5.5L, Albumin 2.8L, Albumin/Globulin Ratio 1.04, Anion Gap 6L, Glomerular Filtration Rate > 60.0, Magnesium Level 2.1, Platelet Count, EDTA Free 21*L 12/01/16 04:53: White Blood Count 6.7, Red Blood Count 3.40L, Hemoglobin 10.4L, Hematocrit 33.6L , Mean Corpuscular Volume 98.6H, Mean Corpuscular Hemoglobin 30.4, Mean Corpuscular Hemoglobin Concent 30.8L, Red Cell Distribution Width 15.7H, Platelet Count 80L, Neutrophils (%) (Auto) 41.1, Lymphocytes (%) (Auto) 41.6, Monocytes (%) (Auto) 8.1H, Eosinophils (%) (Auto) 4.1H, Basophils (%) (Auto) 0.3 , Neutrophils # (Auto) 2.7, Lymphocytes # (Auto) 3.1, Monocytes # (Auto) 0.5, Eosinophils # (Auto) 0.3, Basophils # (Auto) 0.0, Large Unclassified Cells # 0.3 , Large Unclassified Cells % 4.9H CBC/BMP Laboratory Tests 12/01/16 04:52 Calcium Level 8.2 L, Aspartate Amino Transf (AST/SGOT) 29, Alanine Aminotransferase (ALT/SGPT) 30, Gamma Glutamyl Transpeptidase 75, Alkaline Phosphatase 184 H, Total Bilirubin 0.6, Total Protein 5.5 L, Albumin 2.8 L 12/01/16 04:53 Red Blood Count 3.40 L, Mean Corpuscular Volume 98.6 H, Mean Corpuscular Hemoglobin 30.4, Mean Corpuscular Hemoglobin Concent 30.8 L, Red Cell Distribution Width 15.7 H, Neutrophils (%) (Auto) 41.1, Lymphocytes (%) (Auto) 41.6, Monocytes (%) (Auto) 8.1 H, Eosinophils (%) (Auto) 4.1 H, Basophils (%) ( Auto) 0.3, Neutrophils # (Auto) 2.7, Lymphocytes # (Auto) 3.1, Monocytes # (Auto ) 0.5, Eosinophils # (Auto) 0.3, Basophils # (Auto) 0.0 Microbiology Microbiology 11/29/16 Blood Culture - Preliminary, Resulted No growth after 24 hours . All specim... 11/29/16 Blood Culture, Ordered Pending AFRICA CAVANAUGH MD Dec 01, 2016 09:57
[2016-12-01] MEDS: VITAMIN D 1,000 INTERNATIONAL UNITS TABLET PO SCH (10:37)
[2016-12-01] MEDS: SIMVASTATIN 20 MG TAB PO SCH (10:37)
[2016-12-01] MEDS: ASPIRIN ENTERIC 325 MG TAB PO SCH (10:37)
[2016-12-01] MEDS: EZETIMIBE 10 MG TAB (ZETIA) PO SCH (10:37)
[2016-12-01] MEDS: LISINOPRIL 40 MG TAB PO SCH (10:37)
[2016-12-01] MEDS: NYSTATIN 100,000 UNITS/GM TOPICAL PWD 15 GM TOP SCH ×2 (10:38→20:52)
--- NOTE | 2016-12-01 11:57 | IPN ---
DATE: 12/01/2016 Mr. Gracia had a relatively uneventful night and day with his use of continuous positive airway pressure (CPAP) there was much less bradycardia than the night before. His fluid balance was approximately 3 liters negative and his weight is down approximately to 2.5 kg compared to the day before 280.3 kg. He is alert and oriented and appropriate. Denies significant dyspnea or chest discomfort at rest, but obviously his ambulation is minimal and he gets short of breath just transferring from bed to chair. His jugular venous pulse (JVP) is still very high. Lungs are relatively clear, but the air movement is fair. Heart exam reveals regular rhythm with somewhat distant heart sounds corresponding to his body habitus. Abdomen is obese but soft. There is overwhelming peripheral edema all the way to his abdomen. Laboratory browning: Basic metabolic panel: Potassium 4.1, BUN 28, creatinine 1.1, glucose 92. Normal liver function test. Albumin is 2.8. CBC: WBC 6.7, hemoglobin 10.4, hematocrit 33 and platelet count is up to 80,000. He does have a significant amount of blood in his urine collection bag. Echocardiogram performed yesterday reveals very dilated left ventricle but overall ejection fraction is relatively preserved. There is no overwhelming valvular disease and the pulmonary artery pressure was estimated to be in the neighborhood of moderate pulmonary hypertension. Overall, I believe this is most consistent with hypertensive heart disease and diastolic congestive heart failure. ASSESSMENT AND PLAN: Mr. Gracia is an 86-year-old man who presents with gradually worsening peripheral edema over the course of probably several months. I believe that the whole picture is most consistent with diastolic congestive heart failure and essentially anasarca. I explained to the family that we will continue diuresing him but because we do not want to diuresis too quickly. I do expect that he will stay in the hospital for at least week or longer. There are several other issues. He does have coronary artery disease, but I do not have the information about his coronary anatomy yet. We faxed the release of information yesterday, but I assume that we will probably not get any information over the weekend. But there is nothing that would suggest ischemic presentation. Consequently, I do not believe that this is an unstable issue. As far as the bradycardia was concerned, there has been major improvement I suspect mostly due to use of CPAP and discontinuation of his outpatient beta-merary. Finally he does have significant thrombocytopenia when he presented with platelet count 72,000. It is up to 80, 00 today. It does not look that he had a recent hospitalization in [place] so I am not certain about the etiology. I suspect he might have potentially liver cirrhosis as a culprit, also heparin-induced thrombocytopenia is in differential diagnosis and his Lovenox was discontinued. At this point, I would probably just observe him, but his platelet count continues to be in the right direction. He will need alternative for deep venous thrombosis (DVT) prophylaxis. I would probably would give him either low-dose Xarelto or Eliquis as these easiest choice. MTDD
[2016-12-01 12:00] VITALS: BP 143/65
--- NOTE | 2016-12-01 12:00 | REP ---
CT ABDOMEN AND PELVIS WITHOUT CONTRAST: 12/01/2016. Comparison: CT 05/28/2007, portable chest 11/29/2016. Clinical history: Hematuria. Technique: Helical scanning through the abdomen and pelvis with coronal and sagittal reconstructions provided. Findings:CT abdomen: Respiratory motion blur limits evaluation of lower lung zones, however there is some underlying interstitial fibrotic change and a small right pleural effusion. There is consolidative atelectasis with air bronchograms versus infiltrate deep sulcus adjacent to that effusion in the right lower lobe. Some fibroatelectatic change in the deep sulcus of the left lower lobe without definite effusion there. There is cardiomegaly with left atrial and ventricular enlargement and some right heart enlargement as well. Sternotomy wires are present. There are some mediastinal clips and calcifications at the aortic valve plane and mitral annulus. I do not see hepatomegaly. There is no splenomegaly and no focal hepatic or splenic lesion. No biliary dilatation. No definite perihepatic ascites. Gallbladder partially contracted without calcified stone or mass. No hiatal hernia. Stomach empty. Adrenal glands normal. The right kidney shows a 6.5 cm cyst off the anterior aspect of the upper pole and an 8.7 cm cyst off the posterior aspect of the lower pole. These have both increased in size since the previous study particularly the posterior lower pole cyst. Adjacent to the upper pole cyst already mentioned is another about 2.7 cm. All of these are exophytic. There is no hydronephrosis, stone, or solid renal mass identified. The left kidney shows an extrarenal pelvis without stone, mass or cyst. No perinephric edema. The ureters follow a normal course to the bladder. They are not dilated and they show no definite stone. Bladder is empty and the Fuentes catheter balloon is seen inflated within it. No definite stones within it. The aorta has atherosclerotic calcification throughout and into the iliac and femoral vessels without aneurysm. No periaortic or other retroperitoneal pathologic sized lymphadenopathy. Visualized small bowel loops and colon are intact. There is an omental fat filled umbilical hernia with a gap of about 18 mm. No bowel loops herniated there. Diastases of the rectus muscles above and below noted. Lung window review of all CT slices abdomen and pelvis shows no perforation or abscess. Small bowel loops grossly intact without dilatation. Colon shows some scattered diverticula without signs of diverticulitis or colitis. No stricture or mass in the abdomen proper. Bone windows show diffuse degenerative disc change and vacuum phenomenon from T11-12 through L5-S1 and also at T6-7. No compression deformity. There is facet arthropathy in the lower lumbar spine, severe without spondylolysis. Visualized ribs without an acute fracture. CT pelvis. The bony pelvis shows degenerative changes in the hips with acetabular and femoral head rim osteophytes and subchondral cysts. SI joints grossly intact. Sacral ala and foramina symmetric. Iliac wings, acetabuli, ischia and symphysis pubis without acute fracture. Hips without fracture or destructive lesion. Bladder empty with a Fuentes catheter balloon in place. There is one small calcification midline posterior to the catheter which appears to be prostate calcification. The prostate is not grossly enlarged. Seminal vesicles symmetric. Distal left colon, sigmoid and rectum without colitis or diverticulitis. Small bowel loops grossly intact. No inflammatory changes about the cecum and the appendix is normal. There is no inguinal bowel herniation. No pathologic sized inguinal adenopathy. No suprapubic ventral hernia. Additionally there is a diffuse pattern of subcutaneous edema in the abdomen, pelvis, flanks, buttocks and proximal thighs as well as the scrotum. This represents anasarca. Impression: 1. Right pleural effusion with basilar consolidative atelectasis or infiltrate in the deep sulcus as well as lesser atelectatic change without effusion in the deep sulcus of the left lower lobe. 2. Cardiomegaly with left atrial and ventricular enlargement, small hiatal hernia, right renal cysts without solid mass or hydronephrosis. 3. Adrenal glands, pancreas, left kidney, liver, spleen all intact. No colitis or diverticulitis. 4. Findings consistent with anasarca. Question is there a low serum albumin. No ascites in the abdomen and no adenopathy abdomen or pelvis. 5. No pelvic mass. Prostate not enlarged. Fuentes catheter is within the bladder and it is nearly empty. No inguinal hernia or ventral hernia. 6. Diffuse degenerative changes lumbar, lower thoracic spine, posterior elements and hips. 7. No aortic aneurysm. Signed by Brayan Jarvis MD 12/01/2016 07:30 P
[2016-12-01 14:45] LABS: MICROSCOPIC INDICATED? MAN YES (NO)
[2016-12-01 15:06] LABS: BACTERIA, URINE SMALL AMOUNT; RBC, URINE TNTC /hpf (0-3); SQUAMOUS EPITHELIAL CELL URINE NONE SEEN /hpf (SMALL AMT)
[2016-12-01 15:07] LABS: HYALINE CAST, URINE NONE SEEN /lpf (0-1); MICROSCOPIC EXAM PERFORMED
[2016-12-01 16:00] VITALS: BP 162/76
[2016-12-01] MEDS: cefTRIAXone SOD 2 GM in D5W MINI-BAG PLUS 50 ML IV SCH (16:33)
[2016-12-01 19:06] LABS: MEAN CORPUSCULAR HEMOGLOBIN 30.7 pg (27.0-33.0); MEAN CORPUSCULAR HGB CONC 30.9 g/dl (32.0-36.5); MEAN CORPUSCULAR VOLUME 99.3 fl (80.0-96.0); RED CELL DISTRIBUTION WIDTH 15.8 % (11.5-14.5); WHITE BLOOD COUNT 9.7 K/mm3 (4.0-10.0)
--- NOTE | 2016-12-01 20:21 | ECGEPIP ---
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
--- NOTE | 2016-12-01 20:23 | ECGEPIP ---
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
[2016-12-01 20:46] VITALS: BP 142/76
[2016-12-01] MEDS: TERAZOSIN 5 MG CAP PO SCH (20:52)
[2016-12-01 23:48] VITALS: BP 144/65
[2016-12-02] MEDS: FUROSEMIDE 40 MG/4 ML VIAL (J1940) IV SCH ×5 (04:03→20:49)
[2016-12-02 05:27] VITALS: BP 150/66
[2016-12-02 05:54] LABS: ANION GAP 5 MEQ/L (8-16); BLOOD UREA NITROGEN 32 MG/DL (7-18); CALCIUM LEVEL 7.9 MG/DL (8.8-10.2); CARBON DIOXIDE LEVEL 38 MEQ/L (21-32); CHLORIDE LEVEL 104 MEQ/L (98-107); CREATININE FOR GFR 1.15 MG/DL (0.70-1.30); GLOMERULAR FILTRATION RATE > 60.0 (>35); GLUCOSE, FASTING 93 MG/DL (83-110); MAGNESIUM LEVEL 2.3 MG/DL (1.8-2.4); POTASSIUM SERUM 4.1 MEQ/L (3.5-5.1); SODIUM LEVEL 147 MEQ/L (136-145)
[2016-12-02 06:20] LABS: BASO % 0.4 % (0.0-1.0); EOS # 0.2 K/mm3 (0.0-0.50); EOS % 4.2 % (0.0-3.0); LARGE UNSTAINED CELL # 0.3 K/mm3 (0.0-0.4); LYMPH # 2.7 K/mm3 (1.5-4.5); LYMPH % 41.3 % (24.0-44.0); MEAN CORPUSCULAR HEMOGLOBIN 30.7 pg (27.0-33.0); MEAN CORPUSCULAR HGB CONC 30.9 g/dl (32.0-36.5); MEAN CORPUSCULAR VOLUME 99.2 fl (80.0-96.0); MONO # 0.5 K/mm3 (0.0-0.8); MONO % 8.2 % (0.0-5.0); NEUTROPHILS # 2.4 K/mm3 (1.8-7.7); NEUTROPHILS % 40.9 % (36.0-66.0); RED CELL DISTRIBUTION WIDTH 15.7 % (11.5-14.5); WHITE BLOOD COUNT 5.9 K/mm3 (4.0-10.0)
[2016-12-02 06:36] LABS: PLATELET COUNT, AUTOMATED 68 k/mm3 (150-450)
[2016-12-02] MEDS: HumaLOG INSULIN (NovoLOG) PER UNIT SC SCH ×4 (07:30→20:54)
--- NOTE | 2016-12-02 07:58 | IPN ---
DATE: 12/02/2016 Mr. Gracia has had a relatively good night and day yesterday, and there were no significant arrhythmias. He slept with the CPAP and he has no complaints today. He denies dyspnea or chest discomfort, even though visibly it seems that his breathing is somewhat labored. Vital signs blood pressure 150/66, heart rate has been in 70s. He is afebrile. Saturation is 99% on BiPAP overnight and now on 2 liters of oxygen. His fluid balance yesterday was approximately 3.7 liters negative weight is documented 180.5 kg which is almost 2 kg less than yesterday. He already lost approximately 5 kg since admission. He is alert and oriented and appropriate. His JVP is still very high. Lungs are relatively clear. Heart exam regular rhythm. No significant murmur, gallop or rub, very muffled heart sound due to his large body habitus. He still continues to have severe edema of lower extremity all to the level of his chest, but the upper extremity seems to be much less tense. Neurologically, I do not appreciate any focal weakness. LABORATORY DATA: Potassium 4.1, BUN 34, creatinine 1.1, glucose 93. His albumin yesterday was 2.8, magnesium is 2.3, and CBC reveals hemoglobin of 10.1, hematocrit 32 and platelet count 68,000. ASSESSMENT/PLAN: Mr. Gracia is an 86-year-old man who presents with diastolic congestive heart failure and anasarca. The echocardiogram is of poor quality and revealed fairly severely dilated left ventricle, but at the same time the overall systolic function is either normal or near normal and there is no hemodynamically significant valvular disease. At this point, the principal intervention is diuresis, and so far has been going well and he has been losing approximately 2 kg every day. Unfortunately, there is so much volume overload that it will take a very long time before he will be anywhere close to euvolemic. He does have underlying coronary artery disease. So far, we have not received any records from [place], but because it is a regular day today, I am hoping that we will received some records today. My only real concern is deep vein thrombosis (DVT) prophylaxis. We have been holding off because of thrombocytopenia. The etiology at this point is unclear. 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 I think that considering the platelet count is on the trajectory down, it is prudent not to anticoagulate the patient as yet.
[2016-12-02 08:00] VITALS: BP 118/56
[2016-12-02] MEDS: ASPIRIN ENTERIC 325 MG TAB PO SCH (09:02)
[2016-12-02] MEDS: LISINOPRIL 40 MG TAB PO SCH (09:03)
[2016-12-02] MEDS: EZETIMIBE 10 MG TAB (ZETIA) PO SCH (09:03)
[2016-12-02] MEDS: SIMVASTATIN 20 MG TAB PO SCH (09:03)
[2016-12-02] MEDS: VITAMIN D 1,000 INTERNATIONAL UNITS TABLET PO SCH (09:03)
[2016-12-02] MEDS: NYSTATIN 100,000 UNITS/GM TOPICAL PWD 15 GM TOP SCH ×2 (09:08→20:55)
[2016-12-02 11:35] VITALS: BP 133/67
[2016-12-02] MEDS ORDERED: SLF 3 ML SYR IV PRN (11:45)
[2016-12-02] MEDS: SLF 3 ML SYR IV SCH ×2 (14:00→20:55)
[2016-12-02 16:00] VITALS: BP 138/74
[2016-12-02] MEDS: cefTRIAXone SOD 2 GM in D5W MINI-BAG PLUS 50 ML IV SCH (17:15)
[2016-12-02 20:32] VITALS: BP 153/72
[2016-12-02] MEDS: TERAZOSIN 5 MG CAP PO SCH (20:49)
--- NOTE | 2016-12-02 23:37 | IPNPDOC ---
Subjective Date Seen The patient was seen on 12/02/16. Subjective Chief Complaint/HPI The patient is a 86-year-old male admitted with a reason for visit of Acute Congestion Heart Failure. Pulmonary: Denies: Cough, Dyspnea Cardiovascular: Denies: Chest Pain, Lt Headedness, Orthopnea, Palpitations, Paroxysmal Noc. Dyspnea Objective Physical Examination General Exam: Positive: Alert, Cooperative, No Acute Distress Eye Exam: Positive: Conjunctiva & lids normal, EOMI, PERRLA, Negative: Sclera icteric ENT Exam: Positive: Atraumatic Neck Exam: Positive: JVD, Other, Supple Chest Exam: Positive: Diminished, Negative: Clear to auscultation Heart Exam: Positive: Bradycardic, Regular Rhythm Telemetry: Positive: Bradycardia, No significant arrhythmia Abdomen Exam: Positive: Normal bowel sounds, Other (morbidly obese), Soft, Negative: Tenderness Extremity Exam: Positive: Edema (signficant lower extremity edema to sacrum) Psych Exam: Positive: Oriented x 3 Assessment /Plan Problems (1) Acute congestive heart failure Status: Acute Response to Treatment: Uncompensated, Progressing Discussed With: Schedule Hanger, Patient Problem Specific Plan: Consult Specialist, Monitor Clinically, Repeat Labs, Repeat Tests Problem Text: i/o's, daily weight diuresis with lasix IV Q4 hours cardiology consulted (2) Thrombocytopenia Status: Acute Response to Treatment: Progressing Discussed With: Patient Problem Specific Plan: Monitor Clinically, Repeat Labs, Repeat Tests Problem Text: Peripheral smear pending. EDTA free sample surprisingly much lower than EDTA sample. Will repeat CBC with EDTA free this evening. Hold off on transfusion for now as true platelet count still undetermined. Likely secondary to hepatic congestion from severe decomp CHF/volume overload. Appears to possibly run chronically low from previous laboratory results. HIT antibiody pending. D/W heme/onc. Avoid heparin products. (3) Bradycardia Status: Acute Discussed With: Schedule Hanger, Patient Problem Specific Plan: Consult Specialist, Monitor Clinically (4) CAD (coronary artery disease) Status: Chronic Discussed With: Patient Problem Text: s/p cabg 2000, stents 2006 continue asa, metoprolol, lisinopril (5) HTN (hypertension) Status: Chronic Discussed With: Patient Problem Specific Plan: Monitor Clinically Problem Text: continue lisinopril, metoprolol (6) Diabetes Status: Chronic Discussed With: Patient Problem Specific Plan: Repeat Labs Problem Text: metformin on hold insulin sliding scale, modified diet (7) Obesity Status: Chronic Discussed With: Patient Problem Specific Plan: Monitor Clinically Problem Text: further complicating factor to his medical care (8) Dyslipidemia Status: Chronic Problem Text: continue zetia, zocor (9) BPH (benign prostatic hyperplasia) Status: Chronic Discussed With: Patient Problem Specific Plan: Monitor Clinically Problem Text: s/p turp, continue terazosin alfredo catheter in place hematuria noted in alfredo bag reported difficult alfredo insertion continue to monitor (10) JAMIN (obstructive sleep apnea) Status: Chronic Discussed With: Patient Problem Text: compliant with cpap (11) Dementia Status: Chronic Discussed With: Patient Problem Specific Plan: Monitor Clinically (12) Non-compliance Status: Chronic Discussed With: Patient Problem Text: Further complicating factor to his medical care. Plan/VTE VTE Prophylaxis Ordered?: No VTE Exclusion Pharmacological: Thrombocytopenia Plan/Urinary Catheter Reason for insertion/continuin: Critical Pt monitoring Plan Diet: Continue Current Activity: Continue Current Medications: Replete Electrolytes IV, Taper Antibiotics Respiratory: Wean Oxygen Diagnostics: Repeat Labs in AM VS, I&O, 24H, [facility] Vital Signs/I&O Vital Signs Date Time Temp Pulse Resp B/P Pulse Ox O2 Delivery O2 Flow Rate FiO2 12/02/16 20:49 153/72 12/02/16 20:32 97.3 84 20 95 Room Air 12/02/16 16:00 2.0 I&O- Last 24 Hours up to 6 AM 12/02/16 06:00 Intake Total 780 ml Output Total 3325 ml Balance -2545 ml Laboratory Data 24H LABS Laboratory Tests 2 12/02/16 04:54: Anion Gap 5L, White Blood Count 5.9, Red Blood Count 3.31L, Hemoglobin 10.1L, Hematocrit 32.8L, Mean Corpuscular Volume 99.2H, Mean Corpuscular Hemoglobin 30.7, Mean Corpuscular Hemoglobin Concent 30.9L, Red Cell Distribution Width 15.7H, Platelet Count 68L, Neutrophils (%) (Auto) 40.9, Lymphocytes (%) (Auto) 41.3, Monocytes (%) (Auto) 8.2H, Eosinophils (%) (Auto) 4.2H, Basophils (%) ( Auto) 0.4, Neutrophils # (Auto) 2.4, Lymphocytes # (Auto) 2.7, Monocytes # (Auto ) 0.5, Eosinophils # (Auto) 0.2, Basophils # (Auto) 0.0, Blood Urea Nitrogen 32H , Creatinine 1.15, Sodium Level 147H, Potassium Level 4.1, Chloride Level 104, Carbon Dioxide Level 38H, Calcium Level 7.9L, Glomerular Filtration Rate > 60.0 , Large Unclassified Cells # 0.3, Large Unclassified Cells % 5.0H, Magnesium Level 2.3 12/02/16 11:19: Bedside Glucose (Misc Panel) 123H 12/02/16 16:57: Bedside Glucose (Misc Panel) 116H 12/02/16 20:54: Bedside Glucose (Misc Panel) 140H CBC/BMP Laboratory Tests 12/02/16 04:54 Calcium Level 7.9 L, Red Blood Count 3.31 L, Mean Corpuscular Volume 99.2 H, Mean Corpuscular Hemoglobin 30.7, Mean Corpuscular Hemoglobin Concent 30.9 L, Red Cell Distribution Width 15.7 H, Neutrophils (%) (Auto) 40.9, Lymphocytes (% ) (Auto) 41.3, Monocytes (%) (Auto) 8.2 H, Eosinophils (%) (Auto) 4.2 H, Basophils (%) (Auto) 0.4, Neutrophils # (Auto) 2.4, Lymphocytes # (Auto) 2.7, Monocytes # (Auto) 0.5, Eosinophils # (Auto) 0.2, Basophils # (Auto) 0.0 Microbiology Microbiology 11/29/16 Blood Culture - Preliminary, Resulted No Growth after 72 hours. All specime... ANGELINA MALAGON DO Dec 02, 2016 23:37
[2016-12-03] VITALS (7 sets, daily range): BP systolic 131–154; BP diastolic 61–82
[2016-12-03 00:07] LABS: ORGANISM ID Not indicated. (.); SPECIMEN SOURCE Urine (.)
[2016-12-03] MEDS: SLF 3 ML SYR IV SCH ×3 (04:49→20:37)
[2016-12-03] MEDS: FUROSEMIDE 40 MG/4 ML VIAL (J1940) IV SCH ×6 (04:49→20:32)
[2016-12-03 05:30] LABS: BASO % 0.4 % (0.0-1.0); EOS # 0.3 K/mm3 (0.0-0.50); EOS % 5.2 % (0.0-3.0); LARGE UNSTAINED CELL # 0.3 K/mm3 (0.0-0.4); LARGE UNSTAINED CELL % 4.9 % (0.0-4.0); LYMPH # 2.7 K/mm3 (1.5-4.5); LYMPH % 38.9 % (24.0-44.0); MEAN CORPUSCULAR HEMOGLOBIN 31.1 pg (27.0-33.0); MEAN CORPUSCULAR HGB CONC 32.5 g/dl (32.0-36.5); MEAN CORPUSCULAR VOLUME 95.6 fl (80.0-96.0); MONO # 0.5 K/mm3 (0.0-0.8); MONO % 8.6 % (0.0-5.0); NEUTROPHILS # 2.6 K/mm3 (1.8-7.7); PLATELET COUNT, AUTOMATED 74 k/mm3 (150-450); RED CELL DISTRIBUTION WIDTH 15.4 % (11.5-14.5); WHITE BLOOD COUNT 6.1 K/mm3 (4.0-10.0)
[2016-12-03 05:38] LABS: ANION GAP 5 MEQ/L (8-16); BLOOD UREA NITROGEN 29 MG/DL (7-18); CALCIUM LEVEL 8.4 MG/DL (8.8-10.2); CARBON DIOXIDE LEVEL 38 MEQ/L (21-32); CHLORIDE LEVEL 103 MEQ/L (98-107); CREATININE FOR GFR 0.98 MG/DL (0.70-1.30); GLOMERULAR FILTRATION RATE > 60.0 (>35); GLUCOSE, FASTING 89 MG/DL (83-110); MAGNESIUM LEVEL 2.3 MG/DL (1.8-2.4); SODIUM LEVEL 146 MEQ/L (136-145)
[2016-12-03] MEDS: HumaLOG INSULIN (NovoLOG) PER UNIT SC SCH ×4 (07:30→20:50)
--- NOTE | 2016-12-03 08:18 | IPN ---
DATE: 12/03/2016 Mr. Gracia had relatively good day and night again yesterday. He was able to sleep without major difficulty with his CPAP. Started having episodes of brief runs of nonsustained ventricular tachycardia. They are clinically asymptomatic. There was successful diuresis yesterday again. Fluid balance was documented about 3 liters negative and weight is down to 177 kg which is 3 kg less than yesterday. According to our scales, he already lost 8 kg which is about 16 pounds or so. Vital signs: Blood pressure 138/82, heart rate is in 70s, sinus rhythm. Saturation 96% on BiPAP and he is afebrile. JVP is still extremely elevated. Lungs are surprisingly clear to auscultation. Heart exam very muffled heart sounds. Faint murmur over the aortic valve. No gallop. Abdomen is still massively swollen and same applies for lower extremities. LABORATORY: Basic metabolic panel: Sodium 146, BUN 29, creatinine 1, glucose 89, potassium 4.0, magnesium 2.3. CBC: Hemoglobin 10.3, hematocrit 31 and platelet count 74,000 ASSESSMENT/PLAN: Mr. Gracia is an 86-year-old man who has established coronary artery disease with remote history of bypass surgery and later PCI who presented with anasarca. It is due to chronic principally diastolic congestive heart failure. I suspect being more due to obesity and hypertensive heart disease rather than ischemic heart disease. So far he has diuresed about 8 kg of water which does not seem to make much difference in the degree of edema. I assume that there is at least another 30, 40, maybe even 50 or more pounds of diuresis that needs to occur. This obviously will take a long time but so far, things are going well and we will continue the current treatment. 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 The trend has not been appreciably in one direction or another and platelets are mostly from 60-80,000. He does have some hematuria. At this point, he is not receiving DVT prophylaxis and HIT antibodies are pending. At this point, I would continue the same but if HIT antibodies came back negative, he probably should get Lovenox. I am afraid to give him Eliquis or Xarelto would be difficult on account of the hematuria which very likely will get much worse.
[2016-12-03] MEDS: VITAMIN D 1,000 INTERNATIONAL UNITS TABLET PO SCH (09:20)
[2016-12-03] MEDS: LISINOPRIL 40 MG TAB PO SCH (09:20)
[2016-12-03] MEDS: NYSTATIN 100,000 UNITS/GM TOPICAL PWD 15 GM TOP SCH ×2 (09:20→20:33)
[2016-12-03] MEDS: ASPIRIN ENTERIC 325 MG TAB PO SCH (09:21)
[2016-12-03] MEDS: EZETIMIBE 10 MG TAB (ZETIA) PO SCH (09:21)
[2016-12-03] MEDS: SIMVASTATIN 20 MG TAB PO SCH (09:21)
[2016-12-03] MEDS: cefTRIAXone SOD 2 GM in D5W MINI-BAG PLUS 50 ML IV SCH (16:29)
--- NOTE | 2016-12-03 17:16 | IPN ---
DATE: 12/03/2016 Mr. Gracia is feeling well this morning. He has no complaints of pain, chest pain or shortness of breath. He is interested in how long he is going to be in the hospital. Temperature 97.1, pulse 73, respiratory rate 20, blood pressure 154/70, 92% on room air. Intake and output (I O) notable for a negative fluid balance of -3000. He is -12 to -14 liters during his stay so far. He is awake, appropriately interactive. Does not remember me from our previous encounter in the emergency department. Breathing is symmetrically diminished. He is grossly edematous. Heart is distant-sounding. Telemetry shows short runs of nonsustained ventricular tachycardia. Abdomen soft, doughy, nontender. Lower extremities are quite edematous. There is some beginning of wrinkling shown in is upper and lower extremities. Sodium 146, BUN 29, creatinine 0.98. Hemoglobin 10.3. ASSESSMENT: This is an 86-year-old with acute congestive heart failure. PLAN: 1. Cardiovascular. I discussed this case with Dr. Goodwin in person. Plan to continue diuresis and monitor him on telemetry, as he has had short runs of ventricular tachycardia. 2. Patient has thrombocytopenia. 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 Heparin antibodies are pending. In the meantime, we will hold heparin products. 3. Patient has hematuria. Most likely related to traumatic Fuentes placement. Continue with Fuentes catheter for now. He is passing urine well. 4. Patient has hypertension. 5. Patient has diabetes. He is on insulin currently, as well as a modified diet. 6. Patient has morbid obesity, which complicates care. 7. Patient has dyslipidemia. 8. Patient has benign prostatic hypertrophy. 9. Patient has obstructive sleep apnea and wears his continuous positive airway pressure (CPAP) at home.
[2016-12-03] MEDS: TERAZOSIN 5 MG CAP PO SCH (20:34)
[2016-12-04] VITALS (7 sets, daily range): BP systolic 140–168; BP diastolic 62–70
[2016-12-04] MEDS: FUROSEMIDE 40 MG/4 ML VIAL (J1940) IV SCH ×6 (00:39→21:07)
[2016-12-04] MEDS: SLF 3 ML SYR IV SCH ×3 (05:02→21:07)
[2016-12-04 06:20] LABS: ANION GAP 5 MEQ/L (8-16); BLOOD UREA NITROGEN 28 MG/DL (7-18); CALCIUM LEVEL 8.6 MG/DL (8.8-10.2); CARBON DIOXIDE LEVEL 38 MEQ/L (21-32); CHLORIDE LEVEL 100 MEQ/L (98-107); GLOMERULAR FILTRATION RATE > 60.0 (>35); GLUCOSE, FASTING 93 MG/DL (83-110); MAGNESIUM LEVEL 2.3 MG/DL (1.8-2.4); SODIUM LEVEL 143 MEQ/L (136-145)
[2016-12-04 06:22] LABS: BASO % 0.3 % (0.0-1.0); EOS # 0.3 K/mm3 (0.0-0.50); EOS % 4.4 % (0.0-3.0); LARGE UNSTAINED CELL # 0.4 K/mm3 (0.0-0.4); LARGE UNSTAINED CELL % 5.1 % (0.0-4.0); LYMPH # 3.7 K/mm3 (1.5-4.5); LYMPH % 43.3 % (24.0-44.0); MEAN CORPUSCULAR HEMOGLOBIN 30.8 pg (27.0-33.0); MEAN CORPUSCULAR HGB CONC 32.4 g/dl (32.0-36.5); MEAN CORPUSCULAR VOLUME 95.1 fl (80.0-96.0); MONO # 0.6 K/mm3 (0.0-0.8); MONO % 7.8 % (0.0-5.0); NEUTROPHILS % 39.1 % (36.0-66.0); RED CELL DISTRIBUTION WIDTH 15.7 % (11.5-14.5); WHITE BLOOD COUNT 7.7 K/mm3 (4.0-10.0)
[2016-12-04 06:24] LABS: PLATELET COUNT, AUTOMATED 83 k/mm3 (150-450)
[2016-12-04] MEDS: HumaLOG INSULIN (NovoLOG) PER UNIT SC SCH ×4 (07:30→20:56)
--- NOTE | 2016-12-04 08:43 | IPN ---
DATE: 12/04/2016 Mr. Gracia remains approximately the same. He had a relatively uneventful night. Blood pressure 141/65. Heart rate is 70s and 80s. He is afebrile. Saturation is 97% on BiPAP. His fluid balance yesterday though was only about a liter negative according to documentation, which is disappointing, yet the weight was documented 170.8 kg. He has a new bed with air mattress and I suspect that this is the difference. He is alert and oriented and appropriate. His jugular venous pulse (JVP) is still pj high. Lungs are relatively clear to auscultation. Heart exam reveals a regular rhythm without gallop. There is a murmur at the base. He is still profoundly edematous with 4+ edema all the way to the upper abdomen. Fortunately, the upper extremities though for the most part are now edema free so we are making some progress, but there is still a long way to go. He has so much excess fluid that I do expect that he will stay in hospital for at least another week, if not longer. His remaining issues are stable.
[2016-12-04] MEDS: EZETIMIBE 10 MG TAB (ZETIA) PO SCH (09:00)
[2016-12-04] MEDS: VITAMIN D 1,000 INTERNATIONAL UNITS TABLET PO SCH (09:00)
[2016-12-04] MEDS: ASPIRIN ENTERIC 325 MG TAB PO SCH (09:00)
[2016-12-04] MEDS: SIMVASTATIN 20 MG TAB PO SCH (09:00)
[2016-12-04] MEDS: LISINOPRIL 40 MG TAB PO SCH (09:00)
[2016-12-04] MEDS: NYSTATIN 100,000 UNITS/GM TOPICAL PWD 15 GM TOP SCH ×2 (09:01→21:06)
--- NOTE | 2016-12-04 17:10 | IPN ---
DATE: 12/04/2016 Mr. Gracia is feeling well today. He has no complaints of pain. No chest pain. He is interested to know when he is going to be out of the hospital. He is tolerating a diet and needs help setting up his breakfast, says he is quite hungry this morning. Temperature is 97.3, pulse 88, respiratory rate 18, blood pressure 148/62, 95% on room air. Input and output notable for a negative fluid balance of -990 with some leakage around his Fuentes catheter. He is awake, appropriately interactive, pleasant. Mucous membranes are moist. Neck is supple. Breathing is symmetrical. I:E ratio is 1:3. Heart has a regular rate and rhythm. He has had runs of ventricular tachycardia on monitor. Abdomen is distended. There is some wrinkling in his arms and legs, but he is still grossly edematous. White cell count is 7.7, hemoglobin is 10, and platelets are 83. Sodium 143, BUN 28, creatinine 1.0. This is an 86-year-old with acute congestive heart failure (CHF). PLAN: 1. Cardiovascular. The patient continues to have a course of diuresis. Continue to follow the patient on telemetry. 2. The patient is being treated for possible community acquired pneumonia with ceftriaxone. We will complete a short course of antibiotics for a total of 5 to 7 days, depending on clinical course. 3. The patient has thrombocytopenia, thought to be related to cardiovascular cirrhosis. Heparin antibodies are within a reasonable range. He is not receiving heparin products, as he is having hematuria. 4. The patient has hematuria. This is most likely related to traumatic Fuentes placement, as it was quite difficult. Continue with the Fuentes catheter for now. He does have leakage around the Fuentes and would ideally have a larger Fuentes catheter placed but at this point I believe that this would require a difficult procedure and we will continue with the current management. 5. The patient has hypertension. 6. The patient has diabetes. Currently on insulin and modified diet. 7. The patient has morbid obesity, which complicates care. 8. The patient has dyslipidemia. 9. The patient has benign prostatic hypertrophy (BPH). 10. The patient has obstructive sleep apnea and has been compliant with his continuous positive airway pressure (CPAP) device in the hospital and at home.
[2016-12-04] MEDS: cefTRIAXone SOD 2 GM in D5W MINI-BAG PLUS 50 ML IV SCH (17:39)
[2016-12-04] MEDS: TERAZOSIN 5 MG CAP PO SCH (21:07)
[2016-12-05] VITALS (7 sets, daily range): BP systolic 118–175; BP diastolic 56–81
[2016-12-05] MEDS: SLF 3 ML SYR IV SCH ×3 (04:12→20:56)
[2016-12-05] MEDS: FUROSEMIDE 40 MG/4 ML VIAL (J1940) IV SCH ×6 (04:12→20:58)
[2016-12-05 05:57] LABS: MAGNESIUM LEVEL 2.5 MG/DL (1.8-2.4)
[2016-12-05 05:59] LABS: BASO % 0.3 % (0.0-1.0); EOS # 0.4 K/mm3 (0.0-0.50); EOS % 4.9 % (0.0-3.0); LARGE UNSTAINED CELL # 0.4 K/mm3 (0.0-0.4); LARGE UNSTAINED CELL % 4.6 % (0.0-4.0); LYMPH # 4.4 K/mm3 (1.5-4.5); LYMPH % 51.3 % (24.0-44.0); MEAN CORPUSCULAR HEMOGLOBIN 30.5 pg (27.0-33.0); MEAN CORPUSCULAR HGB CONC 32.4 g/dl (32.0-36.5); MEAN CORPUSCULAR VOLUME 94.2 fl (80.0-96.0); MONO # 0.6 K/mm3 (0.0-0.8); MONO % 7.1 % (0.0-5.0); NEUTROPHILS # 2.5 K/mm3 (1.8-7.7); NEUTROPHILS % 31.9 % (36.0-66.0); PLATELET COUNT, AUTOMATED 84 k/mm3 (150-450); RED CELL DISTRIBUTION WIDTH 15.5 % (11.5-14.5); WHITE BLOOD COUNT 7.8 K/mm3 (4.0-10.0)
[2016-12-05 06:33] LABS: ANION GAP 8 MEQ/L (8-16); BLOOD UREA NITROGEN 27 MG/DL (7-18); CALCIUM LEVEL 8.8 MG/DL (8.8-10.2); CARBON DIOXIDE LEVEL 36 MEQ/L (21-32); CHLORIDE LEVEL 99 MEQ/L (98-107); CREATININE FOR GFR 1.03 MG/DL (0.70-1.30); GLOMERULAR FILTRATION RATE > 60.0 (>35); GLUCOSE, FASTING 98 MG/DL (83-110); POTASSIUM SERUM 3.7 MEQ/L (3.5-5.1); SODIUM LEVEL 143 MEQ/L (136-145)
[2016-12-05] MEDS ORDERED: cefTRIAXone SOD 2 GM in D5W MINI-BAG PLUS 50 ML IV SCH (07:15)
[2016-12-05] MEDS: HumaLOG INSULIN (NovoLOG) PER UNIT SC SCH ×4 (07:30→20:51)
--- NOTE | 2016-12-05 08:56 | IPN ---
DATE: 12/05/2016 Mr. Gracia would like to go home but he does acknowledge that his condition is not good enough yet. He denies any shortness of breath or chest pain though. Blood pressure is 119/56. Heart rate is from 70s to low 100s. Saturation is 99% on bilevel positive airway pressure (BiPAP) and in low to mid 90s on room air. His fluid balance yesterday was about 3 liters negative. Weight documented at 149, I suspect it is probably 169, which is successful weight loss since yesterday. His jugular venous pulse (JVP) is still very high. Lungs are relatively clear. Heart exam reveals still very muffled heart sound, faint murmur at the base, no gallop. Abdomen is still massively swollen as well as lower extremity, but they are not as dense then they were the previous days, and his upper extremities are already essentially free of edema. Laboratory browning, hemoglobin 10.7, hematocrit 33, platelet count 84,000, WBC count 7.8 thousand. Basic metabolic panel: Potassium 3.7, BUN 27, creatinine 1 and glucose 98. ASSESSMENT AND PLAN: Mr. Gracia is an 86-year-old man who has history of coronary artery disease with history of CABG and PCIs, but also probably principally hypertensive heart disease with dilated left ventricle, but only mildly reduced left ventricular systolic function. He does have anasarca right now, which clearly has been coming on for quite some time. We have been working on diuretics and so far he has been losing weight successfully. He is starting to be very impatient but I explained to him that he is not ready to go home yet, there is still lot of fluid to be diuresed. He has occasional arrhythmia, brief runs of nonsustained VT, but it is never more than a few beats and is asymptomatic. I still believe that he needs to be monitored especially when the diuresis is continued. I do believe that we made good progress but I still expect that he will be in the hospital for at least 4 or 5 more days. As of tomorrow, Dr. Quintana takes over my service.
[2016-12-05] MEDS: LISINOPRIL 40 MG TAB PO SCH (09:22)
[2016-12-05] MEDS: SIMVASTATIN 20 MG TAB PO SCH (09:23)
[2016-12-05] MEDS: EZETIMIBE 10 MG TAB (ZETIA) PO SCH (09:23)
[2016-12-05] MEDS: VITAMIN D 1,000 INTERNATIONAL UNITS TABLET PO SCH (09:23)
[2016-12-05] MEDS: ASPIRIN ENTERIC 325 MG TAB PO SCH (09:23)
[2016-12-05] MEDS: NYSTATIN 100,000 UNITS/GM TOPICAL PWD 15 GM TOP SCH ×2 (09:24→20:59)
[2016-12-05] MEDS: TERAZOSIN 5 MG CAP PO SCH (20:56)
[2016-12-06] MEDS: FUROSEMIDE 40 MG/4 ML VIAL (J1940) IV SCH ×6 (00:17→20:43)
[2016-12-06 04:00] VITALS: BP 138/60
[2016-12-06] MEDS: SLF 3 ML SYR IV SCH ×3 (04:29→22:08)
[2016-12-06 06:06] LABS: MEAN CORPUSCULAR HEMOGLOBIN 30.8 pg (27.0-33.0); MEAN CORPUSCULAR HGB CONC 32.3 g/dl (32.0-36.5); MEAN CORPUSCULAR VOLUME 95.1 fl (80.0-96.0); RED CELL DISTRIBUTION WIDTH 15.5 % (11.5-14.5); WHITE BLOOD COUNT 8.1 K/mm3 (4.0-10.0)
[2016-12-06 06:06] LABS: ANION GAP 6 MEQ/L (8-16); BLOOD UREA NITROGEN 29 MG/DL (7-18); CALCIUM LEVEL 8.1 MG/DL (8.8-10.2); CARBON DIOXIDE LEVEL 37 MEQ/L (21-32); CHLORIDE LEVEL 99 MEQ/L (98-107); CREATININE FOR GFR 1.09 MG/DL (0.70-1.30); GLOMERULAR FILTRATION RATE > 60.0 (>35); GLUCOSE, FASTING 95 MG/DL (83-110); MAGNESIUM LEVEL 2.4 MG/DL (1.8-2.4); POTASSIUM SERUM 3.7 MEQ/L (3.5-5.1); SODIUM LEVEL 142 MEQ/L (136-145)
[2016-12-06] MEDS: HumaLOG INSULIN (NovoLOG) PER UNIT SC SCH ×4 (07:30→20:43)
[2016-12-06 08:00] VITALS: BP 131/61
[2016-12-06] MEDS: LISINOPRIL 40 MG TAB PO SCH (09:14)
[2016-12-06] MEDS: VITAMIN D 1,000 INTERNATIONAL UNITS TABLET PO SCH (09:15)
[2016-12-06] MEDS: NYSTATIN 100,000 UNITS/GM TOPICAL PWD 15 GM TOP SCH ×2 (09:15→22:08)
[2016-12-06] MEDS: ASPIRIN ENTERIC 325 MG TAB PO SCH (09:15)
[2016-12-06] MEDS: EZETIMIBE 10 MG TAB (ZETIA) PO SCH (09:15)
[2016-12-06] MEDS: SIMVASTATIN 20 MG TAB PO SCH (09:15)
--- NOTE | 2016-12-06 11:07 | IPN ---
DATE: 12/06/2016 Mr. Manfred Gracia was seen early this morning. He was sitting in the chair in no acute distress at rest. He continues to feel better, but he agrees that he needs to remove more fluids from his body. He has been ambulating. He denies any chest pain or palpitations. There is no orthopnea. There is no report of bleeding. There is no nausea, vomiting, diarrhea, melena or hematemesis. On physical examination, the patient is alert and oriented, in no acute distress at rest, and his last vital signs this morning revealed a blood pressure of 131/61 with a pulse of 64, respirations 18, and his maximum temperature is 97 degrees Fahrenheit with an oxygen saturation of 97% on 2 liters nasal cannula. He has a negative fluid balance of 2.9 liters for 12/05/2016. His weight today is 145 kg and yesterday it was 149.6 kg. Examination of the head is normocephalic, atraumatic. Neck is supple. No jugular venous distention. The lungs were clear bilaterally without any wheezing or crackles. The heart examination revealed normal S1 and S2 without gallops. The PMI is displaced inferiorly and laterally. There is no rub. I could not appreciate any murmurs. Abdomen is unremarkable. Obese. Extremities revealed +2 bilateral pedal edema that extended from the anterior lower extremities and up to the abdominal wall. Neurologic examination grossly is negative for focal deficit. LABS: CBC done today revealed a WBC of 8.1, hemoglobin 10.1, hematocrit 31.4 and platelets 88,000. BMP revealed a sodium of 142, potassium 3.7, chloride 99, CO2 37, BUN 29, creatinine 1.09, GFR more than 60, fasting glucose 95. Serum calcium is 8.1. Serum magnesium is 2.4. Telemetry revealed normal sinus rhythm. IMPRESSION: 1. Status post decompensated congestive heart failure, acute on chronic secondary to left ventricular systolic dysfunction. The patient seems to be stable and has improved significantly. He is currently on AMBROCIO inhibitor and I will continue the same for now. Also on Lasix. Prior to coming to the hospital , he was on a beta merary. He should be restarted at a lower dose if there is no contraindications. 2. Coronary artery disease, stable, on antiplatelet therapy as well as a statin and AMBROCIO inhibitor. As mentioned above, he can be restarted on a small dose of short acting beta merary if no contraindications. It seems that according to the emergency room (ER) note, he was taking metoprolol as an outpatient. 3. Hypertension, under control. 4. Hyperlipidemia, on a statin. It was a pleasure to participate in the care of Mr. Manfred Gracia for his underlying cardiac condition. I will continue to monitor him along with you while in the hospital. Dr. Grimes will be covering starting today. Please do not hesitate to call if any questions. WENDI
[2016-12-06 12:00] VITALS: BP 125/58
[2016-12-06 16:00] VITALS: BP 136/63
--- NOTE | 2016-12-06 18:41 | IPN ---
DATE: 12/06/2016 Mr. Gracia is feeling well today. He has no complaints of pain, chest pain, shortness of breath. Still has some leaking around his Fuentes. Is breathing easier. Was up and walking around a little bit in the hallways yesterday, which is much more than he has done in some time. Temperature is 97, pulse 64, respirations 18, blood pressure 131/61, 97% on 2 liters with his bilevel positive airway pressure (BiPAP). Negative fluid status of -2125. One bowel movement yesterday. He is awake, appropriately interactive, pleasantly conversant. Breathing is symmetrical. Inspiratory to expiratory (I-to-E) ratio is 1:4, somewhat diminished throughout. Heart is in a regular rate and rhythm. No significant arrhythmia on the monitor. He has decreasing edema noted. White cell count 8.1, hemoglobin 10.1, platelets 88, stable. BUN 29, creatinine 1.09. ASSESSMENT: This is an 86-year-old with decompensated congestive heart failure, who is showing improvement. 1. Cardiovascular. Patient is continuing diuresis on angiotensin-converting enzyme (AMBROCIO) inhibitor. Dr. Quintana is considering started a beta merary. Again, is showing improvement. By my estimate, he has lost approximately 40 pounds at this point, based on the intake and output, which are probably slightly more accurate than the weights, based on the fact that his bed is changed on multiple days. 2. Patient was treated for a possible course of community acquired pneumonia. Is now currently off ceftriaxone. 3. 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 He is not receiving heparin products, as he does have hematuria. 4. Patient has hematuria. Appears to be somewhat improved. Most likely related to traumatic Fuentes placement. 5. Patient has hypertension. 6. Patient has diabetes. 7. Patient has morbid obesity, which complicates care. 8. Patient has dyslipidemia. 9. Patient has benign prostatic hypertrophy (BPH). 10. Patient has obstructive sleep apnea and is compliant with his continuous positive airway pressure (CPAP).
[2016-12-06 20:25] VITALS: BP 140/69
[2016-12-06] MEDS: TERAZOSIN 5 MG CAP PO SCH (20:42)
[2016-12-07 00:15] VITALS: BP 137/63
[2016-12-07] MEDS: FUROSEMIDE 40 MG/4 ML VIAL (J1940) IV SCH ×4 (00:45→17:32)
[2016-12-07 04:52] VITALS: BP 114/58
[2016-12-07] MEDS: SLF 3 ML SYR IV SCH ×3 (05:00→20:45)
[2016-12-07 06:02] LABS: MEAN CORPUSCULAR HEMOGLOBIN 29.6 pg (27.0-33.0); MEAN CORPUSCULAR HGB CONC 30.7 g/dl (32.0-36.5); MEAN CORPUSCULAR VOLUME 96.5 fl (80.0-96.0); RED CELL DISTRIBUTION WIDTH 15.6 % (11.5-14.5); WHITE BLOOD COUNT 10.6 K/mm3 (4.0-10.0)
[2016-12-07 06:21] LABS: CALCIUM LEVEL 8.7 MG/DL (8.8-10.2); CREATININE FOR GFR 1.28 MG/DL (0.70-1.30); GLOMERULAR FILTRATION RATE 56.7 (>35); MAGNESIUM LEVEL 2.6 MG/DL (1.8-2.4); POTASSIUM SERUM 3.9 MEQ/L (3.5-5.1)
[2016-12-07] MEDS: HumaLOG INSULIN (NovoLOG) PER UNIT SC SCH ×4 (07:28→20:37)
[2016-12-07 08:00] VITALS: BP 126/57
[2016-12-07] MEDS: LISINOPRIL 40 MG TAB PO SCH (08:38)
[2016-12-07] MEDS: VITAMIN D 1,000 INTERNATIONAL UNITS TABLET PO SCH (08:38)
[2016-12-07] MEDS: ASPIRIN ENTERIC 325 MG TAB PO SCH (08:38)
[2016-12-07] MEDS: EZETIMIBE 10 MG TAB (ZETIA) PO SCH (08:38)
[2016-12-07] MEDS: SIMVASTATIN 20 MG TAB PO SCH (08:38)
[2016-12-07] MEDS: NYSTATIN 100,000 UNITS/GM TOPICAL PWD 15 GM TOP SCH ×2 (08:39→20:44)
[2016-12-07 11:56] VITALS: BP 130/61
[2016-12-07 16:00] VITALS: BP 144/66
--- NOTE | 2016-12-07 18:59 | IPN ---
DATE: 12/07/2016 Mr. Gracia is feeling well today, he would like to go home. He inquires again as to how much weight he has lost. Breathing is better. He has been up and moving around in the hallway. He has been taking his meals in a chair. He has more energy. Temperature is 98.4, pulse 96, respiratory rate 18, blood pressure 126/57, 98% on room air. Input and output notable for a negative fluid balance of -560. No bowel movements yesterday. Weight is 143 kg. He is awake, appropriately interactive, pleasantly conversant. Alert and oriented times three. Mucous membranes moist. Neck is supple, thick. Breathing is symmetrical, diminished in the bases, symmetrical chest wall movement. No accessory muscle use. Speaking in sentences. Heart is distant sounding. Normal S1, S2. No significant arrhythmia on the monitor. Continued lower extremity edema, which is improving. White cell count 10.6, increased from yesterday's 8.1, hemoglobin 10.7, platelets of 100, which is slightly increased. BUN is 36, creatinine 1.28. Respiratory panel is negative. ASSESSMENT: This is an 86-year-old with decompensated congestive heart failure (CHF) who is showing improvement. PLAN: 1. Cardiovascular. The patient is continuing diuresis and on an jeifekkpilc-vlorwoivql-uhklss (AMBROCIO) inhibitor. He is being followed by Dr. Quintana. Not currently on a beta merary. Diuresis is beginning to impact renal function and I believe at this point we will decrease his Lasix. It has been difficult to follow his input and output strictly as he has had leakage from his Fuentes catheter. 2. The patient was treated for a possible community acquired pneumonia and is now off antibiotic. His white cell count is increasing, as are his platelets. We will monitor him clinically. 3. The patient has thrombocytopenia, which is slightly better than his baseline. Not currently on heparin products. 4. The patient's hematuria is improving. There are still some small clots in his urine, which is generally yellow colored. 5. The patient has hypertension. 6. The patient has diabetes. 7. The patient has morbid obesity, which complicates care. 8. The patient has dyslipidemia. 9. The patient has benign prostatic hypertrophy (BPH) . 10. The patient has obstructive sleep apnea and is compliant with his continuous positive airway pressure (CPAP). 11. The patient has had short runs of ventricular tachycardia during his diuresis and he will be continued on telemetry.
[2016-12-07 19:47] VITALS: BP 147/67
[2016-12-07] MEDS: TERAZOSIN 5 MG CAP PO SCH (20:44)
[2016-12-08 00:05] VITALS: BP 147/71
[2016-12-08 05:45] VITALS: BP 148/67
[2016-12-08] MEDS: SLF 3 ML SYR IV SCH ×3 (05:51→21:03)
[2016-12-08 05:54] LABS: MEAN CORPUSCULAR HEMOGLOBIN 31.1 pg (27.0-33.0); MEAN CORPUSCULAR HGB CONC 32.7 g/dl (32.0-36.5); MEAN CORPUSCULAR VOLUME 95.2 fl (80.0-96.0); RED CELL DISTRIBUTION WIDTH 15.8 % (11.5-14.5); WHITE BLOOD COUNT 10.3 K/mm3 (4.0-10.0)
[2016-12-08 06:04] LABS: CALCIUM LEVEL 8.7 MG/DL (8.8-10.2); CREATININE FOR GFR 1.27 MG/DL (0.70-1.30); GLOMERULAR FILTRATION RATE 57.2 (>35); MAGNESIUM LEVEL 2.8 MG/DL (1.8-2.4); POTASSIUM SERUM 4.1 MEQ/L (3.5-5.1)
[2016-12-08] MEDS: HumaLOG INSULIN (NovoLOG) PER UNIT SC SCH ×4 (07:30→21:00)
[2016-12-08 08:00] VITALS: BP 131/62
[2016-12-08] MEDS: SIMVASTATIN 20 MG TAB PO SCH (08:28)
[2016-12-08] MEDS: ASPIRIN ENTERIC 325 MG TAB PO SCH (08:28)
[2016-12-08] MEDS: EZETIMIBE 10 MG TAB (ZETIA) PO SCH (08:28)
[2016-12-08] MEDS: LISINOPRIL 40 MG TAB PO SCH (08:28)
[2016-12-08] MEDS: VITAMIN D 1,000 INTERNATIONAL UNITS TABLET PO SCH (08:28)
[2016-12-08] MEDS: NYSTATIN 100,000 UNITS/GM TOPICAL PWD 15 GM TOP SCH ×2 (08:28→21:03)
[2016-12-08] MEDS: FUROSEMIDE 40 MG/4 ML VIAL (J1940) IV SCH ×2 (08:30→17:35)
[2016-12-08 12:00] VITALS: BP 158/59
[2016-12-08 16:00] VITALS: BP_SYST 141; BP_SYST 158; BP_DIAS 59; BP_DIAS 76
[2016-12-08 20:59] VITALS: BP 156/70
[2016-12-08] MEDS: TERAZOSIN 5 MG CAP PO SCH (21:03)
[2016-12-09 00:41] VITALS: BP 130/63
[2016-12-09 04:36] VITALS: BP 148/65
[2016-12-09 06:08] LABS: MEAN CORPUSCULAR HEMOGLOBIN 30.5 pg (27.0-33.0); MEAN CORPUSCULAR VOLUME 95.4 fl (80.0-96.0); RED CELL DISTRIBUTION WIDTH 15.7 % (11.5-14.5); WHITE BLOOD COUNT 10.5 K/mm3 (4.0-10.0)
[2016-12-09 06:13] LABS: ANION GAP 6 MEQ/L (8-16); BLOOD UREA NITROGEN 42 MG/DL (7-18); CALCIUM LEVEL 8.8 MG/DL (8.8-10.2); CARBON DIOXIDE LEVEL 35 MEQ/L (21-32); CHLORIDE LEVEL 103 MEQ/L (98-107); CREATININE FOR GFR 1.11 MG/DL (0.70-1.30); GLOMERULAR FILTRATION RATE > 60.0 (>35); GLUCOSE, FASTING 91 MG/DL (83-110); MAGNESIUM LEVEL 3.1 MG/DL (1.8-2.4); POTASSIUM SERUM 3.9 MEQ/L (3.5-5.1); SODIUM LEVEL 144 MEQ/L (136-145)
[2016-12-09] MEDS: SLF 3 ML SYR IV SCH ×3 (06:40→22:00)
[2016-12-09] MEDS: HumaLOG INSULIN (NovoLOG) PER UNIT SC SCH ×4 (07:30→21:00)
[2016-12-09 08:00] VITALS: BP 121/57
[2016-12-09] MEDS: LISINOPRIL 40 MG TAB PO SCH (09:03)
[2016-12-09] MEDS: SIMVASTATIN 20 MG TAB PO SCH (09:03)
[2016-12-09] MEDS: ASPIRIN ENTERIC 325 MG TAB PO SCH (09:03)
[2016-12-09] MEDS: EZETIMIBE 10 MG TAB (ZETIA) PO SCH (09:03)
[2016-12-09] MEDS: FUROSEMIDE 40 MG/4 ML VIAL (J1940) IV SCH ×2 (09:04→18:23)
[2016-12-09] MEDS: VITAMIN D 1,000 INTERNATIONAL UNITS TABLET PO SCH (10:05)
[2016-12-09] MEDS: NYSTATIN 100,000 UNITS/GM TOPICAL PWD 15 GM TOP SCH ×2 (10:05→21:39)
--- NOTE | 2016-12-09 10:20 | IPN ---
DATE OF VISIT: 12/08/2016 Mr. Gracia is feeling well today. He has been up and moving around. No complaints of pain, chest pain or shortness of breath. He is interested in how long he is going to be in the hospital. He does think his arms and legs are showing less edema. PHYSICAL EXAMINATION: VITAL SIGNS: Temperature 98.3, pulse 93, respirations 20, blood pressure 158/59, 90% on room air. Intake and output (I and O) notable for negative fluid balance of minus 1205. One bowel movement yesterday. GENERAL: He is awake and appropriately interactive, pleasantly conversant. HEENT: Moist mucous membranes. NECK: Supple. LUNGS: Breathing is symmetrically diminished. HEART: Distant sounds, normal S1, S2. Regular rate and rhythm. ABDOMEN: Distended. EXTREMITIES: There is decreasing lower extremity edema with wrinkling now noted in the skin below the knees bilaterally. LABORATORY DATA: White cell count 10.3, hemoglobin 10.4, platelets 107. Sodium 143, BUN 46, creatinine 1.27, magnesium 28. ASSESSMENT: This is an 86-year-old with decompensated diastolic congestive heart failure who has shown improvement. PLAN: 1. Cardiovascular. Not currently on a beta merary, diureses has affected renal function but we are still being successful in negative fluid as the weights on a daily basis have been somewhat unreliable. I believe the I and O are conservative. 2. The patient has been treated for possible community acquired pneumonia, is off antibiotic. White cell count continues to be minimally elevated. He is having no symptoms, he is walking in the hallway. I believe he is generally improved and there is no role for antibiotics at this time. 3. The patient has thrombocytopenia which is slightly better than his baseline. 4. The patient has hematuria which continues. Will attempt to remove the catheter in the next 1-2 days. 5. The patient has hypertension. 6. The patient has diabetes. 7. The patient is morbid obese which complicates care. 8. The patient has dyslipidemia. 9. The patient is benign prostatic hypertrophy. 10. The patient has obstructive sleep apnea, is compliant with CPAP. 11. The patient has had short runs of ventricular tachycardia during his diuresis but none in the past few days.
[2016-12-09 11:45] VITALS: BP 138/65
[2016-12-09 14:00] VITALS: BP 149/67
--- NOTE | 2016-12-09 15:22 | IPN ---
DATE: 12/09/2016 Mr. Gracia is feeling well today. He has no complaints of pain. No chest pain. He is not particularly short of breath. He has been up and moving around. He is interested in discharge planning. PHYSICAL EXAMINATION: VITAL SIGNS: Temperature 97.8, pulse 92, respirations 20, blood pressure 121/57, 92% on room air. Intake and output (I and O) notable for negative fluid status yesterday of minus 1140, thus far today minus 1 liter. GENERAL: He is awake and appropriately interactive, pleasantly conversant and a reasonable historian. HEENT: Moist mucous membranes. NECK: Supple. Thick. LUNGS: Breathing is symmetrically diminished. I:E ratio is 1:3. ABDOMEN: Soft, protuberant, nontender. EXTREMITIES: He again has decreasing lower extremity edema noted in his bilateral lower extremities. LABORATORY DATA: White cell count 10.5, hemoglobin 10.2, platelets 113, creatinine 1.11. Stool for occult blood is negative. ASSESSMENT: This is an 86-year-old with decompensated diastolic congestive heart failure with slow improvement and continued diuresis. PLAN: 1. Cardiovascular. We are continuing to pursue diuresis. The patient has lost over 40 pounds this time. I found that the bed scale is likely less accurate than the input and output for estimating weight loss, as he has had several bed changes during his stay. 2. The patient has been treated for possible community acquired pneumonia and is off antibiotic. His white cell count is slightly elevated and platelets are trending upward, which can either be an acute phase reaction or evidence that his heart failure is improving and allowing his cardiac cirrhosis to improve. 3. The patient has thrombocytopenia which is slightly better than his baseline. 4. The patient has hematuria. He had a traumatic Fuentes catheter placement, which was quite difficult. I would like to remove the Fuentes, but I do note that there are a number of clots in the line today and I am worried that he may become obstructed with removal of the Fuentes. This is something that should be reconsidered on a daily basis. 5. The patient has hypertension. 6. The patient has diabetes. 7. The patient has morbid obesity which complicates physical therapy (PT) and has been cleared. He has been walking in the hallway with a walker. 8. The patient has dyslipidemia. 9. The patient is benign prostatic hypertrophy. 10. The patient has obstructive sleep apnea, is compliant with CPAP. 11. The patient, much earlier in the stay, had short runs of ventricular tachycardia related to his diuresis, he has not in the past few days and transfer orders are put into medical/surgical.
[2016-12-09] MEDS: TERAZOSIN 5 MG CAP PO SCH (21:39)
[2016-12-09 22:00] VITALS: BP 163/74
[2016-12-10 06:00] VITALS: BP 117/56
[2016-12-10] MEDS: SLF 3 ML SYR IV SCH ×3 (06:00→20:58)
[2016-12-10 06:47] LABS: MEAN CORPUSCULAR HEMOGLOBIN 30.2 pg (27.0-33.0); MEAN CORPUSCULAR HGB CONC 31.5 g/dl (32.0-36.5); MEAN CORPUSCULAR VOLUME 95.8 fl (80.0-96.0); RED CELL DISTRIBUTION WIDTH 15.5 % (11.5-14.5); WHITE BLOOD COUNT 11.2 K/mm3 (4.0-10.0)
[2016-12-10 07:03] LABS: CALCIUM LEVEL 8.2 MG/DL (8.8-10.2); CREATININE FOR GFR 1.22 MG/DL (0.70-1.30); MAGNESIUM LEVEL 2.8 MG/DL (1.8-2.4); POTASSIUM SERUM 4.2 MEQ/L (3.5-5.1)
[2016-12-10] MEDS: HumaLOG INSULIN (NovoLOG) PER UNIT SC SCH ×4 (08:20→20:28)
[2016-12-10] MEDS: SIMVASTATIN 20 MG TAB PO SCH (08:21)
[2016-12-10] MEDS: EZETIMIBE 10 MG TAB (ZETIA) PO SCH (08:21)
[2016-12-10] MEDS: LISINOPRIL 40 MG TAB PO SCH (08:21)
[2016-12-10] MEDS: ASPIRIN ENTERIC 325 MG TAB PO SCH (08:21)
[2016-12-10] MEDS: VITAMIN D 1,000 INTERNATIONAL UNITS TABLET PO SCH (08:21)
[2016-12-10 08:22] VITALS: BP 112/53
[2016-12-10] MEDS: NYSTATIN 100,000 UNITS/GM TOPICAL PWD 15 GM TOP SCH ×2 (08:22→20:57)
[2016-12-10] MEDS: FUROSEMIDE 40 MG/4 ML VIAL (J1940) IV SCH ×2 (08:22→17:18)
--- NOTE | 2016-12-10 10:42 | IPNPDOC ---
Subjective Date Seen The patient was seen on 12/10/16. Subjective Chief Complaint/HPI The patient is a 86-year-old male admitted with a reason for visit of Acute Congestion Heart Failure. Events since last encounter feeling better every day. lost about 55 lbs of fluid weight. walking , denies any breathing difficulty. upper extremity swelling resolved pedal edema improving. Objective Physical Examination General Exam: Positive: Alert, Cooperative, No Acute Distress Eye Exam: Positive: Conjunctiva & lids normal, EOMI, PERRLA, Negative: Sclera icteric ENT Exam: Positive: Atraumatic Neck Exam: Positive: Supple Chest Exam: Positive: Clear to auscultation Heart Exam: Positive: Normal S1, Normal S2, Regular Rhythm Telemetry: Positive: Bradycardia, No significant arrhythmia Abdomen Exam: Positive: Normal bowel sounds, Other (morbidly obese), Soft, Negative: Tenderness Extremity Exam: Positive: Edema (signficant lower extremity edema to sacrum) Psych Exam: Positive: Oriented x 3 Assessment /Plan Problems (1) Acute congestive heart failure Status: Acute Response to Treatment: Uncompensated, Progressing Discussed With: Crew Person, Patient Problem Specific Plan: Consult Specialist, Monitor Clinically, Repeat Labs, Repeat Tests Problem Text: acute on chronic CHF systolic and diastolic continue lasix bid, daily weight and i/o (2) Thrombocytopenia Status: Acute Response to Treatment: Improving, Progressing Discussed With: Patient Problem Specific Plan: Monitor Clinically, Repeat Labs, Repeat Tests Problem Text: Likely secondary to hepatic congestion from severe decomp CHF/ volume overload. Appears to possibly run chronically low from previous laboratory results. HIT antibiody negative D/W heme/onc. Avoid heparin products. (3) Bradycardia Status: Resolved Discussed With: Crew Person, Patient Problem Specific Plan: Consult Specialist, Monitor Clinically Problem Text: thought to be due to irineo and fluid overload and not using bipap initially now resolved (4) CAD (coronary artery disease) Status: Chronic Discussed With: Patient Problem Text: s/p cabg 2000, stents 2006 continue asa, metoprolol, lisinopril (5) HTN (hypertension) Status: Chronic Discussed With: Patient Problem Specific Plan: Monitor Clinically Problem Text: continue lisinopril, metoprolol (6) Diabetes Status: Chronic Discussed With: Patient Problem Specific Plan: Repeat Labs Problem Text: metformin on hold insulin sliding scale, modified diet (7) Obesity Status: Chronic Discussed With: Patient Problem Specific Plan: Monitor Clinically Problem Text: further complicating factor to his medical care (8) Dyslipidemia Status: Chronic Problem Text: continue zetia, zocor (9) BPH (benign prostatic hyperplasia) Status: Chronic Discussed With: Patient Problem Specific Plan: Monitor Clinically Problem Text: s/p turp, continue terazosin alfredo catheter in place hematuria noted in alfredo bag reported difficult alfredo insertion continue to monitor (10) IRINEO (obstructive sleep apnea) Status: Chronic Discussed With: Patient Problem Text: compliant with cpap (11) Dementia Status: Chronic Discussed With: Patient Problem Specific Plan: Monitor Clinically (12) Non-compliance Status: Chronic Discussed With: Patient Problem Text: Further complicating factor to his medical care. (13) Pulmonary hypertension Status: Chronic (14) Right heart failure Status: Acute Problem Text: continue diuresis. Plan/VTE VTE Prophylaxis Ordered?: Yes VTE Exclusion Pharmacological: Thrombocytopenia Plan/Urinary Catheter Reason for insertion/continuin: Critical Pt monitoring Plan Diet: Continue Current Activity: Continue Current Medications: Replete Electrolytes IV, Taper Antibiotics Respiratory: Wean Oxygen Diagnostics: Repeat Labs in AM VS, I&O, 24H, [facility] Vital Signs/I&O Vital Signs Date Time Temp Pulse Resp B/P Pulse Ox O2 Delivery O2 Flow Rate FiO2 12/10/16 08:22 84 112/53 12/10/16 06:00 98.8 20 96 12/09/16 21:20 Room Air 12/06/16 08:00 2.0 I&O- Last 24 Hours up to 6 AM 12/10/16 05:59 Intake Total 1260 ml Output Total 2650 ml Balance -1390 ml Laboratory Data 24H LABS Laboratory Tests 2 12/09/16 11:50: Bedside Glucose (Misc Panel) 99 12/09/16 16:57: Bedside Glucose (Misc Panel) 102 12/09/16 20:20: Bedside Glucose (Misc Panel) 165H 12/10/16 06:22: Anion Gap 6L, Blood Urea Nitrogen 40H, Creatinine 1.22, Sodium Level 144, Potassium Level 4.2, Chloride Level 104, Carbon Dioxide Level 34H, Calcium Level 8.2L, Glomerular Filtration Rate 60.0, Magnesium Level 2.8H 12/10/16 06:47: Bedside Glucose (Misc Panel) 139H CBC/BMP Laboratory Tests 12/10/16 06:22 Calcium Level 8.2 L, Red Blood Count 3.31 L, Mean Corpuscular Volume 95.8, Mean Corpuscular Hemoglobin 30.2, Mean Corpuscular Hemoglobin Concent 31.5 L, Red Cell Distribution Width 15.5 H Microbiology Microbiology 12/09/16 Stool Occult Blood ([facility]) - Final, Complete 12/07/16 Respiratory Virus Panel (PCR) ([facility]) - Final, Complete KATHY AYALA MD Dec 10, 2016 10:42
[2016-12-10 14:00] VITALS: BP 151/68
[2016-12-10] MEDS: TERAZOSIN 5 MG CAP PO SCH (20:57)
[2016-12-10 22:00] VITALS: BP 152/71
[2016-12-11 06:00] VITALS: BP 121/56
[2016-12-11] MEDS: SLF 3 ML SYR IV SCH ×3 (06:00→21:04)
[2016-12-11 06:56] LABS: MEAN CORPUSCULAR HGB CONC 32.5 g/dl (32.0-36.5); MEAN CORPUSCULAR VOLUME 95.5 fl (80.0-96.0); RED CELL DISTRIBUTION WIDTH 15.5 % (11.5-14.5); WHITE BLOOD COUNT 10.4 K/mm3 (4.0-10.0)
[2016-12-11 07:15] LABS: CREATININE FOR GFR 1.22 MG/DL (0.70-1.30); MAGNESIUM LEVEL 2.7 MG/DL (1.8-2.4); POTASSIUM SERUM 4.2 MEQ/L (3.5-5.1)
[2016-12-11] MEDS: HumaLOG INSULIN (NovoLOG) PER UNIT SC SCH ×4 (07:29→21:00)
[2016-12-11] MEDS: EZETIMIBE 10 MG TAB (ZETIA) PO SCH (09:44)
[2016-12-11] MEDS: VITAMIN D 1,000 INTERNATIONAL UNITS TABLET PO SCH (09:44)
[2016-12-11] MEDS: FUROSEMIDE 40 MG/4 ML VIAL (J1940) IV SCH (09:44)
[2016-12-11] MEDS: ASPIRIN ENTERIC 325 MG TAB PO SCH (09:45)
[2016-12-11] MEDS: SIMVASTATIN 20 MG TAB PO SCH (09:45)
[2016-12-11] MEDS: LISINOPRIL 40 MG TAB PO SCH (09:45)
[2016-12-11] MEDS: NYSTATIN 100,000 UNITS/GM TOPICAL PWD 15 GM TOP SCH ×2 (09:45→21:05)
--- NOTE | 2016-12-11 11:53 | IPNPDOC ---
Subjective Date Seen The patient was seen on 12/11/16. Subjective Chief Complaint/HPI The patient is a 86-year-old male admitted with a reason for visit of Acute Congestion Heart Failure. Events since last encounter alfredo removed yesterday . Patient had several incontinent voids so was not able to document accurate I/Os. no chest pain no fever or chills, no shortness of breath. no nausea or vomiting no abdominal pain or diarrhea. Objective Physical Examination General Exam: Positive: Alert, Cooperative, No Acute Distress Eye Exam: Positive: Conjunctiva & lids normal, EOMI, PERRLA, Negative: Sclera icteric ENT Exam: Positive: Atraumatic Neck Exam: Positive: Supple Chest Exam: Positive: Clear to auscultation Heart Exam: Positive: Normal S1, Normal S2, Regular Rhythm Telemetry: Positive: Bradycardia, No significant arrhythmia Abdomen Exam: Positive: Normal bowel sounds, Other (morbidly obese), Soft, Negative: Tenderness Extremity Exam: Positive: Edema (signficant lower extremity edema to sacrum) Psych Exam: Positive: Oriented x 3 Assessment /Plan Problems (1) Acute congestive heart failure Status: Acute Response to Treatment: Uncompensated, Progressing Discussed With: Mutual Fund Accountant, Patient Problem Specific Plan: Consult Specialist, Monitor Clinically, Repeat Labs, Repeat Tests Problem Text: acute on chronic CHF systolic and diastolic change to po lasix bid, daily weight and i/o (2) Thrombocytopenia Status: Acute Response to Treatment: Improving, Progressing Discussed With: Patient Problem Specific Plan: Monitor Clinically, Repeat Labs, Repeat Tests Problem Text: Likely secondary to hepatic congestion from severe decomp CHF/ volume overload. Appears to possibly run chronically low from previous laboratory results. HIT antibiody negative D/W heme/onc. Avoid heparin products. (3) Bradycardia Status: Resolved Discussed With: Mutual Fund Accountant, Patient Problem Specific Plan: Consult Specialist, Monitor Clinically Problem Text: thought to be due to irineo and fluid overload and not using bipap initially now resolved (4) CAD (coronary artery disease) Status: Chronic Discussed With: Patient Problem Text: s/p cabg 2000, stents 2006 continue asa, metoprolol, lisinopril (5) HTN (hypertension) Status: Chronic Discussed With: Patient Problem Specific Plan: Monitor Clinically Problem Text: continue lisinopril, metoprolol (6) Diabetes Status: Chronic Discussed With: Patient Problem Specific Plan: Repeat Labs Problem Text: metformin on hold insulin sliding scale, modified diet (7) Obesity Status: Chronic Discussed With: Patient Problem Specific Plan: Monitor Clinically Problem Text: further complicating factor to his medical care (8) Dyslipidemia Status: Chronic Problem Text: continue zetia, zocor (9) BPH (benign prostatic hyperplasia) Status: Chronic Discussed With: Patient Problem Specific Plan: Monitor Clinically Problem Text: s/p turp, continue terazosin alfredo catheter in place hematuria noted in alfredo bag reported difficult alfredo insertion continue to monitor (10) IRINEO (obstructive sleep apnea) Status: Chronic Discussed With: Patient Problem Text: compliant with cpap (11) Dementia Status: Chronic Discussed With: Patient Problem Specific Plan: Monitor Clinically (12) Non-compliance Status: Chronic Discussed With: Patient Problem Text: Further complicating factor to his medical care. (13) Pulmonary hypertension Status: Chronic (14) Right heart failure Status: Acute Problem Text: continue diuresis. Plan/VTE VTE Prophylaxis Ordered?: Yes VTE Exclusion Pharmacological: Thrombocytopenia Plan/Urinary Catheter Reason for insertion/continuin: Critical Pt monitoring Plan Diet: Continue Current Activity: Continue Current Medications: Replete Electrolytes IV, Taper Antibiotics Respiratory: Wean Oxygen Diagnostics: Repeat Labs in AM VS, I&O, 24H, [facility] Vital Signs/I&O Vital Signs Date Time Temp Pulse Resp B/P Pulse Ox O2 Delivery O2 Flow Rate FiO2 12/11/16 09:00 Room Air 12/11/16 06:00 99.8 85 20 121/56 95 12/06/16 08:00 2.0 I&O- Last 24 Hours up to 6 AM 12/11/16 06:00 Intake Total 1660 ml Output Total 650 ml Balance 1010 ml Laboratory Data 24H LABS Laboratory Tests 2 12/10/16 16:31: Bedside Glucose (Misc Panel) 92 12/10/16 20:08: Bedside Glucose (Misc Panel) 151H 12/11/16 06:14: Bedside Glucose (Misc Panel) 98 12/11/16 06:45: Anion Gap 6L, Blood Urea Nitrogen 39H, Creatinine 1.22, Sodium Level 145, Potassium Level 4.2, Chloride Level 104, Carbon Dioxide Level 35H, Calcium Level 8.0L, Glomerular Filtration Rate 60.0, Magnesium Level 2.7H CBC/BMP Laboratory Tests 12/11/16 06:45 Calcium Level 8.0 L, Red Blood Count 3.27 L, Mean Corpuscular Volume 95.5, Mean Corpuscular Hemoglobin 31.0, Mean Corpuscular Hemoglobin Concent 32.5, Red Cell Distribution Width 15.5 H Microbiology Microbiology 12/09/16 Stool Occult Blood ([facility]) - Final, Complete 12/07/16 Respiratory Virus Panel (PCR) ([facility]) - Final, Complete KATHY AYALA MD Dec 11, 2016 11:53
[2016-12-11 14:00] VITALS: BP 126/58
[2016-12-11] MEDS: FUROSEMIDE 80 MG TAB PO SCH (17:41)
[2016-12-11] MEDS: TERAZOSIN 5 MG CAP PO SCH (21:05)
[2016-12-11 22:00] VITALS: BP 130/60
[2016-12-12] MEDS: SLF 3 ML SYR IV SCH ×3 (05:28→20:25)
[2016-12-12 06:00] VITALS: BP 129/70
[2016-12-12 06:31] LABS: MEAN CORPUSCULAR HEMOGLOBIN 30.2 pg (27.0-33.0); MEAN CORPUSCULAR HGB CONC 31.4 g/dl (32.0-36.5); RED CELL DISTRIBUTION WIDTH 15.3 % (11.5-14.5); WHITE BLOOD COUNT 9.6 K/mm3 (4.0-10.0)
[2016-12-12 06:37] LABS: CREATININE FOR GFR 1.22 MG/DL (0.70-1.30); MAGNESIUM LEVEL 2.7 MG/DL (1.8-2.4); POTASSIUM SERUM 4.3 MEQ/L (3.5-5.1)
[2016-12-12] MEDS: HumaLOG INSULIN (NovoLOG) PER UNIT SC SCH ×4 (07:30→20:50)
[2016-12-12] MEDS: EZETIMIBE 10 MG TAB (ZETIA) PO SCH (09:26)
[2016-12-12] MEDS: SIMVASTATIN 20 MG TAB PO SCH (09:27)
[2016-12-12] MEDS: ASPIRIN ENTERIC 325 MG TAB PO SCH (09:27)
[2016-12-12] MEDS: FUROSEMIDE 80 MG TAB PO SCH ×2 (09:27→17:59)
[2016-12-12] MEDS: LISINOPRIL 40 MG TAB PO SCH (09:27)
[2016-12-12] MEDS: NYSTATIN 100,000 UNITS/GM TOPICAL PWD 15 GM TOP SCH ×2 (09:28→20:25)
[2016-12-12] MEDS: VITAMIN D 1,000 INTERNATIONAL UNITS TABLET PO SCH (09:28)
[2016-12-12] MEDS ORDERED: metOLazone 5 MG TAB PO ONE (09:30)
--- NOTE | 2016-12-12 12:49 | IPNPDOC ---
Subjective Date Seen The patient was seen on 12/12/16. Subjective Chief Complaint/HPI The patient is a 86-year-old male admitted with a reason for visit of Acute Congestion Heart Failure. Events since last encounter no complaints this am , eager to go home as planned for tomorrow. I/O not accurate as had some incontinent voids. No fever or chills, no chest pain , Shortness of breath improving slowly. Objective Physical Examination General Exam: Positive: Alert, Cooperative, No Acute Distress Eye Exam: Positive: Conjunctiva & lids normal, EOMI, PERRLA, Negative: Sclera icteric ENT Exam: Positive: Atraumatic Neck Exam: Positive: Supple Chest Exam: Positive: Clear to auscultation Heart Exam: Positive: Normal S1, Normal S2, Regular Rhythm Telemetry: Positive: Bradycardia, No significant arrhythmia Abdomen Exam: Positive: Normal bowel sounds, Other (morbidly obese), Soft, Negative: Tenderness Extremity Exam: Positive: Edema (signficant lower extremity edema to sacrum) Psych Exam: Positive: Oriented x 3 Assessment /Plan Problems (1) Acute congestive heart failure Status: Acute Response to Treatment: Uncompensated, Progressing Discussed With: Commission Sales Associate, Patient Problem Specific Plan: Consult Specialist, Monitor Clinically, Repeat Labs, Repeat Tests Problem Text: acute on chronic CHF systolic and diastolic change to po lasix bid, daily weight and i/o (2) Thrombocytopenia Status: Acute Response to Treatment: Improving, Progressing Discussed With: Patient Problem Specific Plan: Monitor Clinically, Repeat Labs, Repeat Tests Problem Text: Likely secondary to hepatic congestion from severe decomp CHF/ volume overload. Appears to possibly run chronically low from previous laboratory results. HIT antibiody negative D/W heme/onc. Avoid heparin products. (3) Bradycardia Status: Resolved Discussed With: Commission Sales Associate, Patient Problem Specific Plan: Consult Specialist, Monitor Clinically Problem Text: thought to be due to irineo and fluid overload and not using bipap initially now resolved (4) CAD (coronary artery disease) Status: Chronic Discussed With: Patient Problem Text: s/p cabg 2000, stents 2006 continue asa, metoprolol, lisinopril (5) HTN (hypertension) Status: Chronic Discussed With: Patient Problem Specific Plan: Monitor Clinically Problem Text: continue lisinopril, metoprolol (6) Diabetes Status: Chronic Discussed With: Patient Problem Specific Plan: Repeat Labs Problem Text: metformin on hold insulin sliding scale, modified diet (7) Obesity Status: Chronic Discussed With: Patient Problem Specific Plan: Monitor Clinically Problem Text: further complicating factor to his medical care (8) Dyslipidemia Status: Chronic Problem Text: continue zetia, zocor (9) BPH (benign prostatic hyperplasia) Status: Chronic Discussed With: Patient Problem Specific Plan: Monitor Clinically Problem Text: s/p turp, continue terazosin alfredo catheter in place hematuria noted in alfredo bag reported difficult alfredo insertion continue to monitor (10) IRINEO (obstructive sleep apnea) Status: Chronic Discussed With: Patient Problem Text: compliant with cpap (11) Dementia Status: Chronic Discussed With: Patient Problem Specific Plan: Monitor Clinically (12) Non-compliance Status: Chronic Discussed With: Patient Problem Text: Further complicating factor to his medical care. (13) Pulmonary hypertension Status: Chronic (14) Right heart failure Status: Acute Problem Text: continue diuresis. Plan/VTE VTE Prophylaxis Ordered?: Yes VTE Exclusion Pharmacological: Thrombocytopenia Plan/Urinary Catheter Reason for insertion/continuin: Critical Pt monitoring Plan Diet: Continue Current Activity: Continue Current Medications: Replete Electrolytes IV, Taper Antibiotics Respiratory: Wean Oxygen Diagnostics: Repeat Labs in AM VS, I&O, 24H, [facility] Vital Signs/I&O Vital Signs Date Time Temp Pulse Resp B/P Pulse Ox O2 Delivery O2 Flow Rate FiO2 12/12/16 06:00 98.0 73 18 129/70 95 Room Air 12/06/16 08:00 2.0 I&O- Last 24 Hours up to 6 AM 12/12/16 06:00 Intake Total 1230 ml Output Total 725 ml Balance 505 ml Laboratory Data 24H LABS Laboratory Tests 2 12/11/16 17:27: Bedside Glucose (Misc Panel) 100 12/11/16 20:36: Bedside Glucose (Misc Panel) 163H 12/12/16 06:12: Anion Gap 5L, Blood Urea Nitrogen 41H, Creatinine 1.22, Sodium Level 143, Potassium Level 4.3, Chloride Level 105, Carbon Dioxide Level 33H, Calcium Level 8.0L, Glomerular Filtration Rate 60.0, Magnesium Level 2.7H CBC/BMP Laboratory Tests 12/12/16 06:12 Calcium Level 8.0 L, Red Blood Count 3.26 L, Mean Corpuscular Volume 96.0, Mean Corpuscular Hemoglobin 30.2, Mean Corpuscular Hemoglobin Concent 31.4 L, Red Cell Distribution Width 15.3 H Microbiology Microbiology 12/09/16 Stool Occult Blood ([facility]) - Final, Complete 12/07/16 Respiratory Virus Panel (PCR) ([facility]) - Final, Complete KATHY AYALA MD Dec 12, 2016 12:49
[2016-12-12 20:25] VITALS: BP 129/70
[2016-12-12] MEDS: TERAZOSIN 5 MG CAP PO SCH (20:25)
[2016-12-12 22:00] VITALS: BP 118/55
[2016-12-13] MEDS: SLF 3 ML SYR IV SCH (04:59)
[2016-12-13 06:00] VITALS: BP 106/54
[2016-12-13 07:20] LABS: CALCIUM LEVEL 8.3 MG/DL (8.8-10.2); CREATININE FOR GFR 1.34 MG/DL (0.70-1.30); GLOMERULAR FILTRATION RATE 53.8 (>35); POTASSIUM SERUM 4.2 MEQ/L (3.5-5.1)
[2016-12-13 07:24] LABS: MEAN CORPUSCULAR HEMOGLOBIN 31.1 pg (27.0-33.0); MEAN CORPUSCULAR VOLUME 94.3 fl (80.0-96.0); RED CELL DISTRIBUTION WIDTH 15.2 % (11.5-14.5)
[2016-12-13] MEDS: HumaLOG INSULIN (NovoLOG) PER UNIT SC SCH (07:30)
[2016-12-13] MEDS ORDERED: FURO1TAB15 PO (08:51)
[2016-12-13] MEDS ORDERED: NYST10PW TOP (08:51)
[2016-12-13] MEDS ORDERED: METO5TA PO (08:51)
[2016-12-13] MEDS ORDERED: metOLazone 5 MG TAB PO ONE (09:00)
[2016-12-13 09:05] VITALS: BP 113/51
[2016-12-13] MEDS: ASPIRIN ENTERIC 325 MG TAB PO SCH (09:06)
[2016-12-13] MEDS: NYSTATIN 100,000 UNITS/GM TOPICAL PWD 15 GM TOP SCH (09:06)
[2016-12-13] MEDS: EZETIMIBE 10 MG TAB (ZETIA) PO SCH (09:06)
[2016-12-13] MEDS: LISINOPRIL 40 MG TAB PO SCH (09:07)
[2016-12-13] MEDS: VITAMIN D 1,000 INTERNATIONAL UNITS TABLET PO SCH (09:07)
[2016-12-13] MEDS: FUROSEMIDE 80 MG TAB PO SCH (09:07)
[2016-12-13] MEDS: SIMVASTATIN 20 MG TAB PO SCH (09:08)
[2016-12-13] MEDS ORDERED: PREVNAR 13 VACCINE SYRINGE (CPT CODE:90670) IM ONE (10:15)
--- NOTE | 2016-12-13 15:10 | DSES ---
DATE OF ADMISSION: 11/29/2016 DATE OF DISCHARGE: 12/13/2016 PRIMARY CARE PROVIDER: Dr. Dupont SUGAR CANE PLANTER MACHINE OPERATOR: Dr. Quintana DISCHARGE DIAGNOSES: 1. 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 2. Moderate pulmonary hypertension with acute on chronic right sided heart failure. 3. Thrombocytopenia, improving. 4. Morbid obesity. 5. Obstructive sleep apnea on continuous positive airway pressure (CPAP). 6. Bradycardia, sinus, which resolved. 7. Coronary artery disease, status post coronary artery bypass graft (CABG) in 2000 and stents in 2006. 8. Hypertension. 9. Diabetes. 10. Dyslipidemia. 11. Benign prostatic hypertrophy (BPH). 12. Dementia. 13. Chronic bilateral lower extremity stasis dermatitis and lymph edema. DISCHARGE MEDICATIONS: - Lasix 80 mg by mouth twice a day - Zaroxolyn 5 mg by mouth three times a week on Friday, Friday and Friday - nystatin powder topically twice a day - aspirin 325 mg by mouth daily - cholecalciferol 2000 units by mouth daily - donepezil 10 mg by mouth twice a day - Zetia 10 mg by mouth daily - fish oil 1200 mg by mouth daily - lecithin 1200 mg by mouth twice a day - Lisinopril 40 mg by mouth daily - memantine 10 mg by mouth twice a day - simvastatin 20 mg by mouth daily - Soothe hydration one drop in both eyes daily as needed for eye lubrication - Cialis 2.5 mg by mouth daily - terazosin 10 mg by mouth at night HOSPITAL COURSE: This is an 86-year-old male who recently came up from [place] where he was down there for 3 months and presented to the hospital with shortness of breath and anasarca. The patient has a history of chronic lower extremity edema, which has been increasing for the past several months with noncompliance of dietary, salt and water intake. He was seen by his contact center professional at [place] and his diuretics were increased; however, has gained 50 pounds of weight over the past three months and presented to the hospital unable to ambulate and bed ridden. The patient was seen by Calender Operator Helper in [place] where he was diagnosed with bilateral lower extremity lymphedema and also fungal infection and was started on fondaparinux. Here, the patient was found to have congestive heart failure, both systolic and diastolic and right sided heart failure. The patient was started on aggressive diuresis. During the hospitalization, initially, the patient was noted to be bradycardic to as low as mid 30s during sleep at night, which was thought to be due to his fluid overload and obstructive sleep apnea and he was not using his CPAP. Once he started diuresis and was using his CPAP at night, his bradycardia resolved. The patient was seen by Dr. Quintana and Dr. Goodwin in the hospital. The patient responded well to diuresis and over a two week time he lost about 45 to 50 pounds of weight in the hospital. The patient's upper extremity and generalized body swelling resolved; however, the patient continued to have bilateral lower extremity chronic stasis changes, dermatitis and lymphedema. The patient was evaluated by physical therapy (PT) and after significant diuresis he started ambulating and functioning well with physical therapy (PT). At present, the patient is close to his baseline body weight. The patient would benefit for loss of another 15 pounds of weight. The patient, as per physical therapy, he is close to his baseline functional status with stable vitals and he is going to be discharged home in a stable condition. On admission, the patient was noted to be thrombocytopenic at 72. The patient had heparin induced thrombocytopenia (HIT) antibodies done, which was 0.2, which is within the normal level. The normal level goes from 0 to 0.4. However, initially, due to questionable HIT, the patient's Lovenox was stopped and was placed on fondaparinux. Later on when the HIT antibody came back negative and after significant diuresis, the patient's platelets started to improve and it was felt that the thrombocytopenia was related to severe hepatic condition, severe decompensated congestive heart failure (CHF) and volume overload. At present, the patient's platelet count has almost normalized at 140. PHYSICAL EXAMINATION: VITAL SIGNS: Temperature 97.9, pulse 91, respiratory rate 17, blood pressure 113/51, pulse oximetry 91% on room air. GENERAL: The patient is awake, alert, oriented times three. Sitting up in chair in no acute distress. HEENT: Normocephalic, atraumatic. Moist mucous membranes. Anicteric eyes. CHEST: Clear to auscultation. CARDIOVASCULAR: S1, S2 regular. ABDOMEN: Obese, nontender. Bowel sounds present. EXTREMITIES: Bipedal edema with chronic stasis dermatitis and lymphedematous changes. LABORATORY DATA: WBC 11, hemoglobin 10.1, platelets 140. Sodium 141, potassium 4.2, chloride 102, bicarbonate 33, BUN 44, creatinine 1.34. Calcium 8.3, magnesium 2.8. Stool occult blood negative. Abdomen and pelvis CT showed right pleural effusion and basilar consolidative atelectasis, cardiomegaly, small hiatal hernia, renal cysts without solid mass or hydronephrosis, anasarca, diffuse degenerative change of lumbar, thoracic spine and hips. No aortic aneurysm. DISPOSITION: The patient is discharged home in stable condition. DISCHARGE INSTRUCTIONS: THe patient is to followup with Dr. Darnell Dupont in 1 week. The patient is to followup with Dr. Quintana in 1 week. WENDI
== END 2016-12-13 11:48 | disposition home health service (06) | DRG 291 ==
LOC: EDBD 11:26 → M ED 15:12 → M ED INP 15:13 → M PCU 20:33 → M MSPAV 12-09 11:38
PROVIDERS: ADMIT General Practice; ATTEND Internal Medicine Nephrology
DX: I11.0 Hypertensive heart disease with heart failure (principal); J18.9 Pneumonia, unspecified organism; Z68.42 Body mass index [BMI] 45.0-49.9, adult; I47.2 Ventricular tachycardia; I50.43 Acute on chronic combined systolic (congestive) and diastolic (congestive) heart failure; D69.6 Thrombocytopenia, unspecified; E66.01 Morbid (severe) obesity due to excess calories; I87.2 Venous insufficiency (chronic) (peripheral); K76.1 Chronic passive congestion of liver; E11.9 Type 2 diabetes mellitus without complications; I27.2 Other secondary pulmonary hypertension; E78.5 Hyperlipidemia, unspecified; R31.9 Hematuria, unspecified; R00.1 Bradycardia, unspecified; N40.0 Benign prostatic hyperplasia without lower urinary tract symptoms; I25.10 Atherosclerotic heart disease of native coronary artery without angina pectoris; T83.091A Other mechanical complication of indwelling urethral catheter, initial encounter; F03.90 Unspecified dementia, unspecified severity, without behavioral disturbance, psychotic disturbance, mood disturbance, and anxiety; G47.33 Obstructive sleep apnea (adult) (pediatric); Z99.89 Dependence on other enabling machines and devices; Z95.5 Presence of coronary angioplasty implant and graft; Z79.899 Other long term (current) drug therapy; Z91.19 Patient's noncompliance with other medical treatment and regimen; Z96.612 Presence of left artificial shoulder joint; Z96.659 Presence of unspecified artificial knee joint; Z79.84 Long term (current) use of oral hypoglycemic drugs; Z82.3 Family history of stroke; Z81.8 Family history of other mental and behavioral disorders

== ENCOUNTER 2016-12-30 12:52 | Inpatient (IN) | payer MEDICARE, OTHER ==
[~2016-12-30] VITALS: Ht 188 cm; Wt 160.0 kg
[~2016-12-30 12:52] MED LIST: ARIC10TA PO; ASPI-85 PO; ASPI32ECTA PO; CIAL2.5T PO; FISH120012 PO; FURO1TAB15 PO; FURO40TA2 PO; LISI40TAB PO; MEMA1TAB2 PO; METF500T PO; METO-207 PO; METO50TA2 PO; METO5TA PO; NYST10PW TOP; POTA20TA PO; SOOTDRO2 OU; TERA10CA3 PO; TERB250T57 PO; VITA200038 PO; ZETI10TA2 PO; ZOCO20TA PO; [UNRECOGNIZED DRUG - CODE] PO; hytrin
[2016-12-30] MEDS ORDERED: HEPARIN SOD (PORCINE) 5000 UNITS/ML VIAL SC SCH (14:00)
[2016-12-30 15:05] VITALS: BP 157/62
[2016-12-30] MEDS ORDERED: ACETAMINOPHEN TAB 650MG DOSE (2X325MG) PO PRN (16:00)
[2016-12-30] MEDS ORDERED: ONDANSETRON 4MG/2ML VIAL (J2405) IV PRN (16:00)
[2016-12-30] MEDS ORDERED: SLF 3 ML SYR IV PRN (16:15)
[2016-12-30 16:18] LABS: VENOUS BASE EXCESS 0.9 (-2.0-2.0); VENOUS PARTIAL PRESSURE CO2 42.4 mmHg (38.0-50.0); VENOUS PARTIAL PRESSURE O2 88.8 mmHg (30.0-50.0); VENOUS STANDARD HCO3 25.2 MEQ/L; VENOUS TOTAL CO2 27.1 MEQ/L (24.0-28.0)
[2016-12-30 16:21] LABS: DIFF SLIDE NUMBER 260; MEAN CORPUSCULAR HEMOGLOBIN 31.6 pg (27.0-33.0); MEAN CORPUSCULAR HGB CONC 34.1 g/dl (32.0-36.5); MEAN CORPUSCULAR VOLUME 92.6 fl (80.0-96.0); RED CELL DISTRIBUTION WIDTH 14.4 % (11.5-14.5); WHITE BLOOD COUNT 17.8 K/mm3 (4.0-10.0)
[2016-12-30 16:43] LABS: ALBUMIN 3.5 GM/DL (3.2-5.2); ALBUMIN/GLOBULIN RATIO 1.35 (1.00-1.93); BILIRUBIN,TOTAL 0.5 MG/DL (0.2-1.0); CALCIUM LEVEL 8.3 MG/DL (8.8-10.2); CREATININE FOR GFR 2.01 MG/DL (0.70-1.30); GLOMERULAR FILTRATION RATE 33.7 (>35); MAGNESIUM LEVEL 2.7 MG/DL (1.8-2.4); PLATELET COUNT, AUTOMATED 71 k/mm3 (150-450); POTASSIUM SERUM 4.2 MEQ/L (3.5-5.1); TOTAL PROTEIN 6.1 GM/DL (6.4-8.2)
[2016-12-30 16:49] LABS: BASOPHILS 1 % (0-4); SMUDGE CELLS 3+
[2016-12-30] MEDS ORDERED: LevoFLOXacin IV 500 MG in APPROPRIATE DILUENT 1 EA IV ONE (17:45)
--- NOTE | 2016-12-30 17:59 | HPEPDOC ---
Medical History and Physical Date of Admission December 30, 2016 at 14:50 History and Physical PRIMARY CARE PROVIDER: Dr. Dupont ATTENDING: Brady Flynn MD CHIEF COMPLAINT: Low blood pressure HISTORY OF PRESENT ILLNESS: This is a 86-year-old male past history of CAD status post CABG/PCI, diabetes, hypertension, obesity, JAMIN, status post TURP, dementia, severe dilated cardiomyopathy, nonsustained V. tach who presented to [place] complaining of dizziness upon standing and found to be hypotensive. The patient has been having she's just blood pressure in his had his diuretics as well as blood pressure medications titrated down. His states that he appears to be dry. Patient was noted to have a blood pressure of 70s over 50s at [place], creatinine 2.01, WBC 24, platelet 71, lactic acid 5--> received 1 L of normal saline as well as azithromycin, Rocephin, 40 mg lasix. Patient also had a CT of the abdomen and pelvis with contrast as well as CTA of the chest which were relatively unremarkable. No central PE noted. Patient was transferred here upon family request as well as further managements of his renal failure. Upon arrival patient was hemodynamically stable. WBC trending down to 17, lactic acid less than 2. PAST MEDICAL HISTORY: As per HPI PAST SURGICAL HISTORY: CABG, PTCA, knee surgery, bilateral surgery surgeries, TURP SOCIAL HISTORY: Denies tobacco, local, illicit drug use. 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 FAMILY HISTORY:Non contributory ALLERGIES: Please see below. REVIEW OF SYSTEMS: HEENT: Denies sore throat/headache CARDIOVASCULAR: Denies chest pain/palpitations RESPIRATORY: No shortness of breath/cough GASTROINTESTINAL: denies nausea/vomiting GENITOURINARY: Denies dysuria/urinary urgency. MUSCULOSKELETAL: Denies myalgias/arthralgias NEUROLOGICAL: Denies any focal weakness Rest of ROS negative. HOME MEDICATIONS: Please see below. PHYSICAL EXAMINATION: Vitals: (see below) General: No acute distress, laying comfortably in bed. HEENT: Moist mucous membranes. Neck: No JVD or lymphadenopathy Cardiac: RRR, No murmurs Pulm: Coarse crackles at the bases b/l. No wheezing or rhonchi Abd: NT/ND + BS Ext: 1+ pitting edema BLE. No cyanosis LABORATORY DATA: See below. IMAGING: CT abd/pelvis with contrast, CTA chest with contrast reports in chart. No central PE. CT Chest 12/30/16 with right sided PNA. MICROBIOLOGY: Please see below. ASSESSMENT/PLAN: 1. Sepsis 2/2 HCAP - Hypotension and lactic acidosis improved. The patient does appear to be clinically dry. Patient also has cystitis on CAT scan, we'll check urinalysis and urine culture. Productive cough of green sputum. CT Chest with right sided PNA. Vanco/Levaquin. Blood cultures/sputum culture. 2. Acute kidney injury- likely prerenal given the patient's initial hypotensive presentation. We'll send urine lites. CT abdomen and pelvis at [facility] with no obstructive uropathy. We will hold Lasix and lisinopril. Continue to monitor. If worsening tomorrow, consider nephrology consult. Of note the patient has received contrast with CT abdomen pelvis as well as CTA. We'll need to monitor over the next 48-72 hours for as patient is susceptible to [place]. 3. Dilated cardiomyopathy- compensated this time. Hold Lasix for now. 4. History of CAD status post CABG- on aspirin and statin. 5. History of nonsustained V. tach 6. Diet-controlled diabetes mellitus 7. Hypertension- hypotensive on presentation. Blood pressure medications for now. Consider restarting if blood pressure remained stable 5. Dementia- on donepezil DVT prophylaxis- heparin subcutaneous Patient was followed by Dr. Link starting 12/31/16 at 7 AM. Vital Signs Vital Signs Date Time Temp Pulse Resp B/P (MAP) Pulse Ox O2 Delivery O2 Flow Rate FiO2 12/30/16 15:05 99.0 98 20 157/62 (93) 98 Nasal Cannula 2.0 Laboratory Data Labs 24H Laboratory Tests 2 12/30/16 16:02: Neutrophils 55, Lymphocytes (Manual) 43, Monocytes (Manual) 1, Basophils (Manual ) 1, Smudge Cells 3+, Platelet Estimate DECREASED, Blood Gas Bicarbonate Standard 25.2, Venous Blood pH 7.402, Venous Blood Partial Pressure CO2 42.4, Venous Blood Partial Pressure O2 88.8H, Venous Blood Total Carbon Dioxide 27.1, Venous Blood HCO3 25.8, Venous Blood Oxygen Saturation 97.0H, Venous Blood Base Excess 0.9, Anion Gap 9, Glomerular Filtration Rate 33.7L, Lactic Acid Level 1.3 , Blood Urea Nitrogen 76H, Creatinine 2.01H, Sodium Level 139, Potassium Level 4.2, Chloride Level 103, Carbon Dioxide Level 27, Calcium Level 8.3L, Aspartate Amino Transf (AST/SGOT) 42H, Alanine Aminotransferase (ALT/SGPT) 44, Alkaline Phosphatase 120H, Total Bilirubin 0.5, Total Protein 6.1L, Albumin 3.5, Magnesium Level 2.7H, Albumin/Globulin Ratio 1.35 CBC/BMP Laboratory Tests 12/30/16 16:02 Red Blood Count 3.73 L, Mean Corpuscular Volume 92.6, Mean Corpuscular Hemoglobin 31.6, Mean Corpuscular Hemoglobin Concent 34.1, Red Cell Distribution Width 14.4, Calcium Level 8.3 L, Aspartate Amino Transf (AST/SGOT) 42 H, Alanine Aminotransferase (ALT/SGPT) 44, Alkaline Phosphatase 120 H, Total Bilirubin 0.5, Total Protein 6.1 L, Albumin 3.5 Microbiology Microbiology 12/30/16 Blood Culture, Received Pending 12/30/16 Blood Culture, Received Pending Home Medications Scheduled Aspirin (Aspirin EC) 325 Mg Tabec, 325 MG PO DAILY Cholecalciferol (Vitamin D-3) 2,000 Unit Tab, 2,000 UNIT PO DAILY Donepezil Hydrochloride (Aricept) 10 Mg Tab, 10 MG PO BID Ezetimibe (Zetia) 10 Mg Tab, 10 MG PO DAILY Fish Oil (Fish Oil) 1,200 Mg Cap, 1,200 MG PO DAILY Furosemide (Furosemide) 40 Mg Tab, 40 MG PO BID Lecithin (Cvs Lecithin) 1,200 Mg Cap, 1,200 MG PO BID Lisinopril (Lisinopril) 20 Mg Tab, 20 MG PO DAILY Memantine Hydrochloride (Memantine HCl) 10 Mg Tab, 10 MG PO BID Nystatin (Nystatin Powder) 100,000 Unit/Gm Pow, 1 DOSE TOP BID abdominal folds, and thighs Simvastatin (Zocor) 20 Mg Tab, 20 MG PO DAILY Tadalafil (Cialis) 2.5 Mg Tab, 2.5 MG PO DAILY Terazosin Hcl (Terazosin HCl) 10 Mg Cap, 10 MG PO QHS Scheduled PRN (Soothe Hydration) 1.25 % Devyn, 1 DROP OU DAILY PRN for EYE LUBRICATION Allergies Coded Allergies: No Known Drug Allergy (Verified Allergy, Unknown, 11/25/12) BRADY FLYNN MD December 30, 2016 17:59
[2016-12-30] MEDS ORDERED: FURO1TAB15 PO (18:57)
[2016-12-30] MEDS ORDERED: METO5TA PO (18:57)
[2016-12-30] MEDS ORDERED: NYST100024 TOP (18:57)
[2016-12-30] MEDS ORDERED: FURO40TA2 PO (19:06)
[2016-12-30] MEDS ORDERED: LISI-538 PO (19:06)
[2016-12-30] MEDS ORDERED: POLYVINYL ALCOHOL OPHTH SOLN 15 ML(LIQUITEARS) OU PRN (19:45)
[2016-12-30 19:51] VITALS: BP 139/63
--- NOTE | 2016-12-30 20:40 | PHACANCOPD ---
PHARMACY VANCOMYCIN DOSING Pt Demographics Demographics Patient Age:86 , Weight:145.700 , Gender: male Adjusted Body Weight Date: 12/30/16, Adjusted Body Weight: [107.6] Kg Events Past 24 Hours Events Past 24 Hours: NO: Dialysis, Diuretic Therapy, Change in CrCl, Fever, Elevation in WBC, Pending Diagnostics, Pending Procedures, Other Vancomycin Vancomycin indication: HCAP Vancomycin Target Ranges: 15-20 mcg/ml Vancomycin Load Y/N: No Load Dose Date Time Vancomycin Load Dose: Date: Time: Vancomycin Dose Date: 12/30/16. Current Vancomycin Dose: [1g iv q24h] Intermittent Dosing?: No Labs Labs Item Value Date Time White Blood Count 17.8 K/mm3 H 12/30/16 1602 Creatinine 2.01 MG/DL H 12/30/16 1602 Micro Microbiology 12/30/16 Blood Culture, Received Pending 12/30/16 Blood Culture, Received Pending 12/30/16 Gram Stain, Received Pending 12/30/16 Sputum Culture, Received Pending Creatinine Clearance Date:12/30/16. Creatinine Clearance: [30.7ml/min]. Pending Labs gram stain, blood culture Assessment and Plan Maintaining Current Dose?: Yes Reason for dose change: No Dose Change Pharmacist Note Pharmacist Note Date: 12/30/16. Pharmacist note: PT is an 86 year old male adjusted body weight 107.6kg being treated for sepsis, HCAP treatment goal 15-20mcg/ml. Pt has no history of vancomycin therapy here at [facility]. Due to his advanced age and poor renal clearance (30.7ml/min) pt will slowly be loaded with 1 g vancomycin iv 12/30 @21, then 1g iv q24h starting at 0900 12/31. We will continue to monitor and adjust dose as needed. SHAKEEL FALCON PHARMACY December 30, 2016 20:40
[2016-12-30] MEDS ORDERED: VANCOMYCIN HCL 1,000 MG, VIAL MATE ADAPTER 1 EACH in D5W 250 ML IV ONE (21:00)
[2016-12-30] MEDS: DONEPEZIL 5 MG TAB PO SCH (21:28)
[2016-12-30] MEDS: TERAZOSIN 5 MG CAP PO SCH (21:30)
[2016-12-30] MEDS: PANTOPRAZOLE 40MG INJ (PROTONIX) (C9113) IV SCH (21:30)
[2016-12-30] MEDS: SLF 3 ML SYR IV SCH (21:31)
[2016-12-30] MEDS: NYSTATIN 100,000 UNITS/GM TOPICAL PWD 15 GM TOP SCH (21:31)
[2016-12-31 00:12] VITALS: BP 114/58
[2016-12-31 03:55] VITALS: BP 119/58
[2016-12-31 05:59] LABS: MEAN CORPUSCULAR HEMOGLOBIN 31.9 pg (27.0-33.0); MEAN CORPUSCULAR HGB CONC 33.5 g/dl (32.0-36.5); RED CELL DISTRIBUTION WIDTH 14.2 % (11.5-14.5); WHITE BLOOD COUNT 18.8 K/mm3 (4.0-10.0)
[2016-12-31 06:13] LABS: CALCIUM LEVEL 8.6 MG/DL (8.8-10.2); CREATININE FOR GFR 1.79 MG/DL (0.70-1.30); GLOMERULAR FILTRATION RATE 38.5 (>35); MAGNESIUM LEVEL 2.8 MG/DL (1.8-2.4); POTASSIUM SERUM 4.4 MEQ/L (3.5-5.1)
[2016-12-31] MEDS: SLF 3 ML SYR IV SCH ×3 (06:21→21:30)
[2016-12-31 08:00] VITALS: BP 118/50
--- NOTE | 2016-12-31 08:14 | REP ---
CT study of the chest without contrast: History: Question right-sided infiltrate. Comparison chest CT study January 04, 2013. Comparison chest x-ray December 30, 2016. Noncontrast CT findings: There is patchy consolidation in the posterobasal segment of the right lower lobe consistent with pneumonia. This is a new finding compared with the 2012 prior study. There is some mild patchy consolidation also noted in the posterior segment of the right upper lobe. There is linear fibrosis versus discoid atelectasis in the bases bilaterally. Heavy vascular calcification is noted. Prior sternotomy. No adrenal lesion is seen. Bilateral renal cortical cysts are noted. These appear to be unchanged. No pulmonary parenchymal mass lesion or adenopathy is noted. No bony destructive lesion seen. Impression: Findings compatible with right lower lobe and posterior segment right upper lobe pneumonia. Prior sternotomy. Heavy vascular calcification. Signed by Stepan Fagan MD 12/31/2016 08:27 A
[2016-12-31] MEDS: VITAMIN D 1,000 INTERNATIONAL UNITS TABLET PO SCH (08:43)
[2016-12-31] MEDS: EZETIMIBE 10 MG TAB (ZETIA) PO SCH (08:43)
[2016-12-31] MEDS: DONEPEZIL 5 MG TAB PO SCH ×2 (08:43→21:28)
[2016-12-31] MEDS: SIMVASTATIN 20 MG TAB PO SCH (08:43)
[2016-12-31] MEDS: NYSTATIN 100,000 UNITS/GM TOPICAL PWD 15 GM TOP SCH ×2 (08:48→21:29)
[2016-12-31] MEDS ORDERED: ASPIRIN ENTERIC 325 MG TAB PO SCH (09:00)
[2016-12-31] MEDS ORDERED: VANCOMYCIN HCL 1,000 MG, VIAL MATE ADAPTER 1 EACH in D5W 250 ML IV SCH ×2 (09:00→21:00)
[2016-12-31] MEDS ORDERED: VANCOMYCIN HCL 1,000 MG, VIAL MATE ADAPTER 1 EACH in D5W 250 ML IV ONE (11:00)
[2016-12-31 12:00] VITALS: BP 109/56
[2016-12-31 15:53] VITALS: BP 110/58
--- NOTE | 2016-12-31 16:18 | IPNPDOC ---
Subjective Date Seen The patient was seen on 12/31/16. Subjective Chief Complaint/HPI The patient is a 86-year-old male admitted with a reason for visit of Sepsis Syncope. Events since last encounter pt seen and examined, no overnight events Constitutional: Denies: Chills, Fever, Night Sweats Pulmonary: Denies: Dyspnea, Cough Cardiovascular: Denies: Chest Pain, Palpitations, Orthopnea, Paroxysmal Noc. Dyspnea, Lt Headedness Objective Physical Examination General Exam: Positive: No Acute Distress Eye Exam: Positive: PERRLA, Conjunctiva & lids normal Chest Exam: Positive: Diminished Heart Exam: Positive: Rate Normal Abdomen Exam: Positive: Normal bowel sounds Extremity Exam: Positive: Normal pulses, Negative: Clubbing, Cyanosis, Edema Assessment /Plan Problems (1) Pneumonia Status: Acute Problem Text: * continue IV antibiotics * continue oxygen * will monitor closely * no fevers overnight * WBC still elevated * sputum cultures pending (2) Diabetes Status: Chronic (3) Dementia Status: Chronic (4) CAD (coronary artery disease) Status: Chronic (5) Pulmonary hypertension Status: Chronic (6) HTN (hypertension) Status: Chronic (7) JAMIN (obstructive sleep apnea) Status: Chronic Problem Text: may use home cpap (8) Dyslipidemia Status: Chronic (9) Hypotension Status: Resolved (10) Sepsis Status: Resolved Problem Text: * secondary to pna * cultures pending * lactic acidosis resolved * bp stable now Plan/VTE VTE Prophylaxis Ordered?: Yes VS, I&O, 24H, Fishbone Vital Signs/I&O Vital Signs Date Time Temp Pulse Resp B/P (MAP) Pulse Ox O2 Delivery O2 Flow Rate FiO2 12/31/16 15:53 98.0 90 18 110/58 (75) 96 Nasal Cannula 2.0 I&O- Last 24 Hours up to 6 AM 12/31/16 06:00 Intake Total 360 ml Output Total 1305 ml Balance -945 ml Laboratory Data 24H LABS Laboratory Tests 2 12/30/16 19:11: Urine Appearance HAZY, Urine Color YELLOW, Urine pH 5.0, Urine Specific [place] 1.013, Urine Protein 1+H, Urine Glucose (UA) 2+H, Urine Ketones NEGATIVE, Urine Urobilinogen 0.2, Urine Bilirubin NEGATIVE, Urine Leukocyte Esterase TRACEH, Urine Blood 3+H, Urine Nitrite NEGATIVE, Urine WBC (Auto) 7H, Urine RBC (Auto) TNTCH, Urine Hyaline Casts (Auto) 2, Urine Bacteria (Auto) 1+H, Urine Squamous Epithelial Cells 0, Urine Amorphous Sediment SMALLH, Urine Sperm (Auto) , Urine Random Creatinine 77.8, Urine Random Sodium 45 12/31/16 05:28: Anion Gap 10, Glomerular Filtration Rate 38.5, Blood Urea Nitrogen 69H, Creatinine 1.79H, Sodium Level 145, Potassium Level 4.4, Chloride Level 107, Carbon Dioxide Level 28, Calcium Level 8.6L, Magnesium Level 2.8H CBC/BMP Laboratory Tests 12/31/16 05:28 Red Blood Count 3.47 L, Mean Corpuscular Volume 95.0, Mean Corpuscular Hemoglobin 31.9, Mean Corpuscular Hemoglobin Concent 33.5, Red Cell Distribution Width 14.2, Calcium Level 8.6 L Microbiology Microbiology 12/30/16 Blood Culture, Received Pending 12/30/16 Blood Culture - Preliminary, Resulted No growth after 24 hours . All specim... 12/30/16 Gram Stain - Final, Resulted 12/30/16 Sputum Culture, Resulted Pending ANGELINA MALAGON DO December 31, 2016 16:18
[2016-12-31] MEDS ORDERED: LevoFLOXacin IV 250 MG in APPROPRIATE DILUENT 1 EA IV SCH (18:00)
[2016-12-31 20:49] VITALS: BP 142/69
[2016-12-31] MEDS: PANTOPRAZOLE 40MG INJ (PROTONIX) (C9113) IV SCH (21:29)
[2016-12-31] MEDS: TERAZOSIN 5 MG CAP PO SCH (21:29)
[2017-01-01] VITALS (7 sets, daily range): BP systolic 95–150; BP diastolic 53–73
[2017-01-01 05:06] LABS: MEAN CORPUSCULAR HEMOGLOBIN 31.7 pg (27.0-33.0); MEAN CORPUSCULAR HGB CONC 33.7 g/dl (32.0-36.5); RED CELL DISTRIBUTION WIDTH 14.6 % (11.5-14.5)
[2017-01-01 05:26] LABS: CALCIUM LEVEL 8.2 MG/DL (8.8-10.2); CREATININE FOR GFR 2.13 MG/DL (0.70-1.30); GLOMERULAR FILTRATION RATE 31.5 (>35); MAGNESIUM LEVEL 2.7 MG/DL (1.8-2.4); POTASSIUM SERUM 4.6 MEQ/L (3.5-5.1)
[2017-01-01] MEDS: SLF 3 ML SYR IV SCH ×3 (06:02→21:16)
[2017-01-01] MEDS: EZETIMIBE 10 MG TAB (ZETIA) PO SCH (09:03)
[2017-01-01] MEDS: VITAMIN D 1,000 INTERNATIONAL UNITS TABLET PO SCH (09:03)
[2017-01-01] MEDS: SIMVASTATIN 20 MG TAB PO SCH (09:03)
[2017-01-01] MEDS: NYSTATIN 100,000 UNITS/GM TOPICAL PWD 15 GM TOP SCH ×2 (09:04→21:17)
[2017-01-01] MEDS: DONEPEZIL 5 MG TAB PO SCH ×2 (09:04→21:13)
[2017-01-01] MEDS ORDERED: cefTRIAXone SOD 1 GM in D5W MINI-BAG PLUS 50 ML IV SCH (12:00)
[2017-01-01] MEDS: FUROSEMIDE 40 MG TAB PO SCH ×2 (12:05→17:01)
[2017-01-01] MEDS ORDERED: VANCOMYCIN HCL 750 MG, VIAL MATE ADAPTER 1 EACH in D5W 250 ML IV SCH (14:30)
--- NOTE | 2017-01-01 14:36 | IPNPDOC ---
Subjective Date Seen The patient was seen on 01/01/17. Subjective Chief Complaint/HPI The patient is a 86-year-old male admitted with a reason for visit of Sepsis Syncope. Events since last encounter pt seen and examined he was sitting in chair at bedside, no overnight events, he has bloody urine in alfredo that started today, denies any chest pain sob, nausea vomiting Objective Physical Examination General Exam: Positive: No Acute Distress Eye Exam: Positive: PERRLA, Conjunctiva & lids normal Chest Exam: Positive: Diminished Heart Exam: Positive: Rate Normal Abdomen Exam: Positive: Normal bowel sounds Extremity Exam: Positive: Normal pulses, Negative: Clubbing, Cyanosis, Edema Assessment /Plan Problems (1) MRSA bacteremia Problem Text: * blood cultures done at [facility] 12/30 were positive for MRSA * repeat blood cultures here done on 12/30 negative X2 for 24 hours * will resume vanco * will consult dr aranda * unknown source, could be due to pneumonia (2) Pneumonia Status: Acute Problem Text: * continue IV antibiotics * pt is off of oxygen at this time * will monitor closely * no fevers overnight * WBC still elevated but trending down * sputum cultures positive only for normal fortunato (3) Sepsis Status: Resolved Problem Text: * secondary to bacteremia vs pneumonia * cultures from [place] was positive for MRSA in blood * blood and sputum cultures here were negative * will continue vanco * consult dr aranda * lactic acidosis resolved * bp stable now (4) Blood in urine Problem Text: * pt has low platelet count * he has history of bph, * now has blood in urine * ASA was discontinued * will d/c alfredo (5) BPH (benign prostatic hyperplasia) Status: Chronic (6) Thrombocytopenia Status: Acute (7) CAD (coronary artery disease) Status: Chronic (8) HTN (hypertension) Status: Chronic (9) JAMIN (obstructive sleep apnea) Status: Chronic Problem Text: may use home cpap (10) Dyslipidemia Status: Chronic (11) Hypotension Status: Resolved (12) Diabetes Status: Chronic (13) Dementia Status: Chronic (14) Pulmonary hypertension Status: Chronic Plan/VTE VTE Prophylaxis Ordered?: Yes VS, I&O, 24H, Fishbone Vital Signs/I&O Vital Signs Date Time Temp Pulse Resp B/P (MAP) Pulse Ox O2 Delivery O2 Flow Rate FiO2 01/01/17 12:00 97.9 105 18 130/59 (82) 96 NIPPV (BIPAP/CPAP) 12/31/16 16:00 0.0 I&O- Last 24 Hours up to 6 AM 01/01/17 06:00 Intake Total 870 ml Output Total 860 ml Balance 10 ml Laboratory Data 24H LABS Laboratory Tests 2 01/01/17 04:22: Anion Gap 7L, Glomerular Filtration Rate 31.5L, Blood Urea Nitrogen 72H, Creatinine 2.13H, Sodium Level 138, Potassium Level 4.6, Chloride Level 103, Carbon Dioxide Level 28, Calcium Level 8.2L, Magnesium Level 2.7H 01/01/17 08:29: Vancomycin Level Trough 19.0 CBC/BMP Laboratory Tests 12/31/16 22:02 01/01/17 04:22 Red Blood Count 3.37 L, Mean Corpuscular Volume 94.0, Mean Corpuscular Hemoglobin 31.7, Mean Corpuscular Hemoglobin Concent 33.7, Red Cell Distribution Width 14.6 H, Calcium Level 8.2 L 01/01/17 09:46 Microbiology Microbiology 12/30/16 Blood Culture - Preliminary, Resulted No growth after 24 hours . All specim... 12/30/16 Blood Culture - Preliminary, Resulted No growth after 24 hours . All specim... 12/30/16 Gram Stain - Final, Complete 12/30/16 Sputum Culture - Final, Complete ANGELINA MALAGON DO January 01, 2017 14:36
[2017-01-01] MEDS ORDERED: VANCOMYCIN HCL 1,000 MG, VIAL MATE ADAPTER 1 EACH in D5W 250 ML IV SCH (21:00)
[2017-01-01] MEDS: TERAZOSIN 5 MG CAP PO SCH (21:16)
[2017-01-01] MEDS: PANTOPRAZOLE 40MG INJ (PROTONIX) (C9113) IV SCH (21:16)
[2017-01-02] VITALS (7 sets, daily range): BP systolic 104–158; BP diastolic 52–75
[2017-01-02] MEDS: SLF 3 ML SYR IV SCH ×3 (05:10→21:24)
[2017-01-02 06:06] LABS: MEAN CORPUSCULAR HEMOGLOBIN 31.7 pg (27.0-33.0); MEAN CORPUSCULAR VOLUME 96.2 fl (80.0-96.0); RED CELL DISTRIBUTION WIDTH 14.2 % (11.5-14.5)
[2017-01-02 06:29] LABS: CALCIUM LEVEL 8.5 MG/DL (8.8-10.2); CREATININE FOR GFR 1.82 MG/DL (0.70-1.30); GLOMERULAR FILTRATION RATE 37.8 (>35); MAGNESIUM LEVEL 2.4 MG/DL (1.8-2.4); POTASSIUM SERUM 4.7 MEQ/L (3.5-5.1)
--- NOTE | 2017-01-02 06:46 | CR ---
DATE OF CONSULTATION: 01/01/2017 REFERRING PROVIDER: Dr. Flynn REASON FOR CONSULTATION: Need for transesophageal echocardiogram in the presence of bacteremia/sepsis. HISTORY OF PRESENT ILLNESS: 86-year-old male who was recently admitted last month here with decompensated congestive heart failure secondary to left ventricular systolic dysfunction. The patient was stabilized and then discharged, bleeding time went to [facility] on 12/30/2016 with hypotension and altered mental status and he was found to be septic. Imaging studies revealed multiple lobe pneumonia in the right lung. His blood tests grew methicillin-resistant Staphylococcus aureus (MRSA). He also was found to have renal failure. He was transferred to [facility] upon the recommendations of his family for further management and evaluation. The patient was seen by infectious disease and a transesophageal echocardiogram was recommended. When I saw Mr. Manfred Gracia this evening, he was supine in bed in no acute distress at rest, sleepy and using his CPAP machine. He denies any chest pain and there was no orthopnea or paroxysmal nocturnal dyspnea (PND). There was no report of palpitations. There was no report of bleeding. He was not coughing. He stated he felt better since in the hospital. He has not been having any fever. He has a past medical history positive for coronary artery disease with coronary artery bypass graft (CABG) in 1998 and a few days later he had percutaneous transluminal coronary angioplasty (PTCA), but could not elaborate. He also has a history of hypertension, hyperlipidemia, obesity and sleep apnea, diabetes mellitus, congestive heart failure secondary to left ventricular systolic dysfunction. There is no history of CVA or sudden cardiac . There is no history of asthma or chronic obstructive pulmonary disease (COPD). Past surgical history is positive for knee and shoulder surgery, transurethral resection of the prostate (TURP), and CABG in 1998. CURRENT MEDICATIONS: - vancomycin 1 gram every 24 hours - Lasix 40 mg by mouth twice a day - vitamin D 2000 units by mouth daily - Zetia 10 mg by mouth daily - simvastatin 20 mg by mouth daily - pantoprazole 40 mg by mouth daily - Aricept 10 mg by mouth twice a day - Nystatin apply to the affected area twice a day - terazosin 10 mg by mouth at bedtime - Tylenol 650 mg every 4 hours as needed for mild pain or fever - ondansetron 4 mg IV every 6 hours as needed for nausea or vomiting FAMILY HISTORY: Noncontributory. SOCIAL HISTORY: The patient lives with his and he usually travels between [place] and [facility]. He denies any smoking. There is no ETOH abuse. ALLERGIES: No known drug allergies. ADVANCED DIRECTIVES: The patient is a full code. PHYSICAL EXAMINATION: The patient is alert and awake in no acute distress at rest and very pleasant. His last vital signs today reveal a blood pressure of 128/66 with a pulse of 98 on telemetry, respirations 18, and his maximum temperature is 98.6 degrees Fahrenheit with oxygen saturation of 96% on 2 liters nasal cannula. Examination of the head is normocephalic, atraumatic. Neck is supple and I could not elicit any jugular venous distention (JVD). The lungs did not reveal any wheezing and I could not appreciate any crackles. The heart as mentioned revealed regular heart sounds without gallops. The PMI is displaced inferiorly and laterally. There was no rub. Abdominal examination is unremarkable. LABS: CBC done this morning revealed a WBC of 14.0, hemoglobin 10.7, hematocrit 31.6 and platelets 64,000. On admission, CBC revealed WBC of 17 on 12/30/2016. BMP done today revealed a sodium of 138, potassium 4.6, chloride 103, CO2 28, BUN 72, creatinine 2.13, GFR 31.5, fasting glucose 103, calcium 8.2, magnesium 2.7. Serum vancomycin level was 19.0. Urinalysis was positive for blood, leukocyte esterase, WBCs, RBCs, bacteria. Chest CT revealed findings consistent with right lower lobe and right upper lobe pneumonia. No manifestation of heart failure. CT of the lungs done prior to coming to the hospital revealed no pulmonary embolism. Blood culture on 12/30/2016 revealed no growth. Sputum gram stain on admission revealed gram positive cocci in clusters and chains and gram negative rods. There were a few epithelial cells and many RBCs. Quality was reported to be good. IMPRESSION: 86-year-old male who was transferred from [facility] with sepsis and hypotension secondary to pneumonia. His blood was reported to grow MRSA. He was evaluated by infectious disease (ID). A transesophageal echocardiogram was recommended which I think is reasonable, but Dr. Goodwin will make the final decision when he sees him tomorrow, 01/02/2017. In the meantime, I have reviewed his medications and I will discontinue both the simvastatin and Zetia and start him on generic Lipitor. Will continue to monitor him along with you while in the hospital.
[2017-01-02] MEDS: VITAMIN D 1,000 INTERNATIONAL UNITS TABLET PO SCH (08:52)
[2017-01-02] MEDS: FUROSEMIDE 40 MG TAB PO SCH ×2 (08:52→18:40)
[2017-01-02] MEDS: DONEPEZIL 5 MG TAB PO SCH ×2 (08:52→21:21)
[2017-01-02] MEDS: NYSTATIN 100,000 UNITS/GM TOPICAL PWD 15 GM TOP SCH ×2 (08:53→21:23)
--- NOTE | 2017-01-02 14:19 | CR ---
DATE OF CONSULTATION: 01/01/2017 REQUESTING PROVIDER: Hospitalist for evaluation of positive blood culture with methicillin resistant Staphylococcus aureus (MRSA). HISTORY OF PRESENT ILLNESS: Mr. Gracia is a pleasant 86-year-old gentleman who presented to [facility] after his noted that he was dizzy, confused and he was hypotensive. At the emergency room in [place], his white count was 24, creatinine 2, lactic acid was 5. The patient received 1 liter normal saline, Rocephin, Zithromax and 40 mg of Lasix. 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 He had been hospitalized from 11/29/2016 to 12/13/2016 for acute on chronic congestive heart failure and was diuresed. The patient went home with nursing visits. He was having nursing visits at least twice a week and according to his , his blood pressure was on the lower side, systolic between 100 and 120 and diastolic about 50. He was having some episodes of dizziness. Today, he does not have any complaints except for hematuria. He has a Fuentes catheter, which according to the nurse was somewhat traumatic. He denies any shoulder pain, knee pain, back pain. No cough or shortness of breath. No nausea, vomiting or diarrhea. He feels well. PAST MEDICAL HISTORY: His past medical history is significant for coronary artery disease status post coronary artery bypass graft (CABG) and PCI, diabetes, hypertension, obesity, obstructive sleep apnea wears continuous positive airway pressure (CPAP), benign prostatic hypertrophy, severe dilated cardiomyopathy, nonsustained ventricular tachycardia. PAST SURGICAL HISTORY: Transurethral resection of prostate (TURP), CABG with no valve replacement, percutaneous transluminal coronary angioplasty, right knee surgery with prosthesis, bilateral shoulder surgery with bilateral prosthesis. SOCIAL HISTORY: Denies any tobacco use. No illicit drug use. 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 ALLERGIES: NO KNOWN DRUG ALLERGIES. MEDICATIONS: - Lipitor 20 mg by mouth at night - vancomycin 1 gram IV every 24 hours - furosemide 40 mg by mouth twice a day - vitamin D 2000 units by mouth daily - Protonix 40 mg IV every 24 hours - Aricept 10 mg by mouth twice a day - Nystatin to the groin - terazosin 10 mg by mouth at night - artificial tears - Tylenol 650 mg by mouth every 4 hours as needed - Zofran 4 mg IV every 6 hours as needed LABORATORY DATA: White count is 14,000, hemoglobin 10.7, hematocrit 31.6, platelet 64, hemoglobin has remained stable today. Yesterday's white count was 18.8, hemoglobin 11, hematocrit 32.9, platelets 68. Sodium 138, potassium 4.6, chloride 103, bicarbonate 28, BUN 72, creatinine 2.13, glucose 103, calcium 8.2, magnesium 2.7. Vancomycin trough was 19. Urinalysis has +3 blood, trace leukocyte esterase and many red cells. Blood cultures, two sets, done on 12/30/2016, no growth after 48 hours. Sputum culture and 12/30/2016 was negative and urine culture is still pending. The patient had one out of two blood cultures done at [facility], which was positive for MRSA. PHYSICAL EXAMINATION: On physical exam, temperature is 98.1, pulse 92, respirations 18, blood pressure 95/53, oxygen saturation 97% on room air. He has been afebrile throughout the admission. His maximum temperature (t-max) on admission was 99. Heart normal S1, S2 distant. Lungs with diminished breath sounds at the bases but clear. Abdomen is morbidly obese, soft, nontender. Back with no CVA or lumbosacral tenderness. In the middle of the spine he has a cystic area, which is slightly erythematous but there is no purulent discharge and it is nontender. There is no focal disc space tenderness. Extremities show hyperpigmented venous stasis changes with +1 pitting edema, nontender. No open ulcers. He has onychomycoses of all ten toes but no petechiae and no lesions to suggest endocarditis. Musculoskeletal exam shows bilateral shoulder replacement, but has full range of motion of both shoulders with no redness. Bilateral knees with full range of motion with no redness. Right knee prosthesis. Motor strength normal. IMPRESSION: This is an 86-year-old gentleman who was admitted from [facility] after he was evaluated there and was noted to be septic. His white count was 25,000. He had one out of two positive blood cultures for MRSA. The source of infection is not very clear to me. He only had one out of two and our blood cultures have been negative. The patient's prosthetic joints seem to be functioning very well and he has no pain. He has no back pain to suggest discitis. He has hematuria but no urinary symptoms otherwise and that seemed to be traumatic, also with thrombocytopenia making the hematuria worse. The patient does not have clinical pneumonia. His chest CT was done on 12/30/2016 which shows right lower lobe and posterior segment right upper lobe pneumonia with some patchy consolidation although the patient clinically is not wearing oxygen and has no cough. His sputum culture at [facility] was negative and his urine culture had less than 10,000 Staphylococcus coag negative. PLAN Suggest consult cardiology. The patient was supposed to see Dr. Quintana in the morning as an outpatient. I would suggest him to see him as an inpatient and obtain transesophageal echocardiogram to rule out endocarditis, although one would suspect that to have more than one positive blood culture that the concern is that he had a significant white count. If transesophageal echo is negative then probably he had an MRSA pneumonia, which could be treated with oral Zyvox. Continue IV vancomycin for now. We will schedule a BALBIR. Continue diuresis. Discontinue Fuentes catheter as soon as possible. Thank you for the consultation. WENDI
--- NOTE | 2017-01-02 15:45 | IPNPDOC ---
Subjective Date Seen The patient was seen on 01/02/17. Subjective Chief Complaint/HPI The patient is a 86-year-old male admitted with a reason for visit of Sepsis Syncope. Events since last encounter pt seen and examined, doing well sitting at bedside, no overnight events Constitutional: Denies: Chills, Fever, Night Sweats Pulmonary: Denies: Dyspnea, Cough Cardiovascular: Denies: Chest Pain, Palpitations, Orthopnea, Paroxysmal Noc. Dyspnea, Lt Headedness Objective Physical Examination General Exam: Positive: No Acute Distress Eye Exam: Positive: PERRLA, Conjunctiva & lids normal Chest Exam: Positive: Diminished Heart Exam: Positive: Rate Normal Abdomen Exam: Positive: Normal bowel sounds Extremity Exam: Positive: Normal pulses, Negative: Clubbing, Cyanosis, Edema Assessment /Plan Problems (1) Pneumonia Status: Acute Problem Text: * continue antibiotics will switch antibiotics to oral per ID recommendations * pt is off of oxygen at this time * WBC still elevated * Sputum cultures positive only for normal fortunato (2) Sepsis Status: Resolved Problem Text: * secondary to bacteremia vs pneumonia * cultures from [place] was positive for MRSA in blood * blood and sputum cultures here were negative * will continue vanco * consult dr aranda * lactic acidosis resolved * bp stable now (3) Blood in urine Problem Text: * pt has low platelet count * he has history of bph, * now has blood in urine * ASA was discontinued * will d/c alfredo (4) BPH (benign prostatic hyperplasia) Status: Chronic (5) Thrombocytopenia Status: Acute (6) CAD (coronary artery disease) Status: Chronic (7) HTN (hypertension) Status: Chronic (8) JAMIN (obstructive sleep apnea) Status: Chronic Problem Text: may use home cpap (9) Dyslipidemia Status: Chronic (10) Hypotension Status: Resolved (11) Diabetes Status: Chronic (12) Dementia Status: Chronic (13) Pulmonary hypertension Status: Chronic Plan/VTE VTE Prophylaxis Ordered?: Yes VS, I&O, 24H, Fishbone Vital Signs/I&O Vital Signs Date Time Temp Pulse Resp B/P (MAP) Pulse Ox O2 Delivery O2 Flow Rate FiO2 01/02/17 11:30 97.0 102 18 126/62 (83) 99 Room Air 01/01/17 16:00 2.0 I&O- Last 24 Hours up to 6 AM 01/02/17 05:59 Intake Total 1250 ml Output Total 1250 ml Balance 0 ml Laboratory Data 24H LABS Laboratory Tests 2 01/02/17 05:39: Erythrocyte Sedimentation Rate 41H, Anion Gap 6L, Glomerular Filtration Rate 37.8, Blood Urea Nitrogen 64H, Creatinine 1.82H, Sodium Level 139, Potassium Level 4.7, Chloride Level 105, Carbon Dioxide Level 28, Calcium Level 8.5L, Magnesium Level 2.4, C-Reactive Protein, Quantitative 1.47H CBC/BMP Laboratory Tests 01/01/17 16:05 01/01/17 21:00 01/02/17 05:39 Red Blood Count 3.44 L, Mean Corpuscular Volume 96.2 H, Mean Corpuscular Hemoglobin 31.7, Mean Corpuscular Hemoglobin Concent 33.0, Red Cell Distribution Width 14.2, Calcium Level 8.5 L Microbiology Microbiology 12/30/16 Blood Culture - Preliminary, Resulted No Growth after 48 hours. All Specime... 12/30/16 Blood Culture - Preliminary, Resulted No Growth after 48 hours. All Specime... 12/30/16 Gram Stain - Final, Complete 12/30/16 Sputum Culture - Final, Complete 01/01/17 Urine Culture, Received Pending ANGELINA MALAGON DO January 02, 2017 15:45
[2017-01-02] MEDS ORDERED: LevoFLOXacin 500 MG TABLET PO ONE (16:00)
[2017-01-02] MEDS ORDERED: ATORVASTATIN 20 MG TAB PO SCH (21:00)
[2017-01-02] MEDS: PANTOPRAZOLE 40MG INJ (PROTONIX) (C9113) IV SCH ×2 (21:00→21:22)
[2017-01-02] MEDS: TERAZOSIN 5 MG CAP PO SCH (21:21)
[2017-01-03 04:00] VITALS: BP 136/66
[2017-01-03 05:44] LABS: MEAN CORPUSCULAR HEMOGLOBIN 31.9 pg (27.0-33.0); MEAN CORPUSCULAR HGB CONC 34.2 g/dl (32.0-36.5); MEAN CORPUSCULAR VOLUME 93.4 fl (80.0-96.0); RED CELL DISTRIBUTION WIDTH 14.4 % (11.5-14.5); WHITE BLOOD COUNT 15.2 K/mm3 (4.0-10.0)
[2017-01-03 06:00] LABS: CALCIUM LEVEL 8.2 MG/DL (8.8-10.2); CREATININE FOR GFR 1.8 MG/DL (0.70-1.30); GLOMERULAR FILTRATION RATE 38.3 (>35); MAGNESIUM LEVEL 2.3 MG/DL (1.8-2.4); POTASSIUM SERUM 4.6 MEQ/L (3.5-5.1)
[2017-01-03] MEDS ORDERED: LevoFLOXacin 250 MG TABLET PO SCH (06:00)
[2017-01-03] MEDS: SLF 3 ML SYR IV SCH (06:21)
[2017-01-03 07:43] VITALS: BP 154/70
[2017-01-03 08:00] VITALS: BP 154/70
[2017-01-03] MEDS: VITAMIN D 1,000 INTERNATIONAL UNITS TABLET PO SCH (08:45)
[2017-01-03] MEDS: DONEPEZIL 5 MG TAB PO SCH (08:45)
[2017-01-03] MEDS: FUROSEMIDE 40 MG TAB PO SCH (08:46)
[2017-01-03] MEDS ORDERED: PANTOPRAZOLE 40MG TAB (PROTONIX) PO SCH (09:00)
[2017-01-03] MEDS: NYSTATIN 100,000 UNITS/GM TOPICAL PWD 15 GM TOP SCH (09:00)
--- NOTE | 2017-01-03 10:42 | IPN ---
DATE: 01/02/2017 Mr. Gracia seems to be doing very well. He denies any fever, chills, cough or shortness of breath. No nausea, vomiting or diarrhea. Temperature is 97.8, pulse 88, respirations 18, blood pressure 105/52, oxygen saturation 98% on room air. Heart: Normal S1, S2 with no murmurs, distant. Lungs: Diminished breath sounds at the bases but clear. Abdomen: Obese, soft, nontender. Extremities: Trace edema. LABORATORY DATA: White count is 17, hemoglobin 10.9, hematocrit 33.1, platelets 77. ESR 41. Sodium 139, potassium 4.7, chloride 105, bicarbonate 28, BUN 64, creatinine 1.82, glucose 105, calcium 8.5, magnesium 2.4, CRP 1.47. Blood cultures two sets were negative on 12/30/2016. Sputum culture was negative. Urine culture is pending. Chest CT shows right lower lobe and posterior segment right upper lobe pneumonia, prior sternotomy. Review of blood cultures from [facility] showed actually evidence of methicillin-resistant Staphylococcus coagulase-negative and not Staphylococcus aureus. The patient does not have MRSA and it was only one out of two positive blood cultures. IMPRESSION: Sepsis with evidence of pneumonia on chest CT. The patient is doing much better. Discontinue IV vancomycin and switch to Levaquin 500 mg by mouth times one dose today and then 250 mg daily. Continue 7-day course. The patient could be discharged home tomorrow if kidney function and complete blood count (CBC) continue to improve. Case has been discussed with Dr. Steve Link. Cancel transesophageal echocardiogram which was scheduled yesterday.
[2017-01-03 11:30] VITALS: BP 148/68
[2017-01-03] MEDS ORDERED: LEVA250T PO (11:47)
--- NOTE | 2017-01-03 12:06 | DSES ---
DATE OF ADMISSION: 12/30/2016 DATE OF DISCHARGE: REASON FOR ADMISSION: Sepsis. FINAL DIAGNOSES: 1. Sepsis secondary to pneumonia. 2. Thrombocytopenia. 3. Leukocytosis. 4. Acute kidney injury. 5. Dilated cardiomyopathy. 6. History of coronary artery disease status post coronary artery bypass graft (CABG). 7. History of nonsustained ventricular tachycardia. 8. Hypertension. 9. Dementia. HISTORY OF PRESENT ILLNESS: The patient is an 86-year-old male with a past medical history significant for coronary artery disease, diabetes, hypertension, obesity, obstructive sleep apnea, transurethral resection of prostate (TURP), dementia, severe dilated cardiomyopathy, nonsustained ventricular tachycardia, presented to [facility] from [place] complaining of dizziness upon standing and was found to be hypotensive. The patient's blood pressure was found to be 70 systolic. He was transferred to [facility] for sepsis. Upon admission, the patient was found to have an elevated lactic acid with a creatinine of 2. He was started on Rocephin and azithromycin. CT of the abdomen and pelvis, as well as CTA of the chest were negative. CT of the chest did show findings compatible with right lower lobe and posterior segment upper lobe pneumonia. HOSPITAL COURSE: The patient was treated with IV antibiotic initially. He was afebrile, but did have leukocytosis. Blood and urine cultures, as well as gram stain were all ordered, all of which were negative. Blood cultures from [place] was only positive for Staphylococcus epidermidis, likely contaminant. The patient's creatinine continued to be elevated only to drop to 1.8. Per prior records, the patient's baseline creatinine is about 1.2. Unknown as to why the patient's creatinine at this time is 1.8. He was initially on vancomycin and Zosyn, which may have been contributing to his acute kidney injury. His Lisinopril was discontinued, as well as his Lasix due to hypotension. Once cultures came back negative, IV antibiotics were discontinued and he was started on Levaquin for pneumonia at 250 mg by mouth daily, renally dosed. The patient was also evaluated by Dr. Davis. She recommended continuing Levaquin for 7 more days. Once the patient was cleared by physical therapy (PT), he was discharged home. The patient was also found to have low platelet count, which continued to worsen. His aspirin was held. He is to followup with primary care provider for repeat blood work. Prescription was given to repeat blood work on 01/07/2017, results to go to Dr. Dupont. At that point, a decision will be made regarding his aspirin. DISCHARGE INSTRUCTIONS: He is to followup with Dr. Dupont in one week. Diet is diabetic, low sodium diet with fluid restriction of 1500 mL per day. Activities as tolerated. DISCHARGE MEDICATIONS: Include: - levofloxacin 250 mg by mouth daily for 7 days - vitamin D 2000 units by mouth daily - Zetia 10 mg daily - Donepezil 10 mg by mouth twice a day - fish oil 1200 mg by mouth daily - Namenda 10 mg by mouth twice a day - simvastatin 20 mg daily - terazosin 10 mg at bedtime - Cialis as needed Aspirin was discontinued, as well as Lisinopril. The patient is to followup with Dr. Dupont regarding his aspirin dosing. DISCHARGE CONDITION: Stable.
== END 2017-01-03 13:27 | disposition home health service (06) | DRG 871 ==
LOC: M PCU 14:50 → EEVIPCON 14:50
PROVIDERS: ADMIT Internal Medicine; ATTEND Internal Medicine
DX: A41.9 Sepsis, unspecified organism (principal); J18.9 Pneumonia, unspecified organism; I42.0 Dilated cardiomyopathy; N17.9 Acute kidney failure, unspecified; Z68.41 Body mass index [BMI] 40.0-44.9, adult; E11.9 Type 2 diabetes mellitus without complications; E66.9 Obesity, unspecified; I25.10 Atherosclerotic heart disease of native coronary artery without angina pectoris; N40.0 Benign prostatic hyperplasia without lower urinary tract symptoms; I27.2 Other secondary pulmonary hypertension; F03.90 Unspecified dementia, unspecified severity, without behavioral disturbance, psychotic disturbance, mood disturbance, and anxiety; Z95.5 Presence of coronary angioplasty implant and graft; D69.6 Thrombocytopenia, unspecified; G47.33 Obstructive sleep apnea (adult) (pediatric); Z79.899 Other long term (current) drug therapy; Z99.89 Dependence on other enabling machines and devices

== ENCOUNTER → 2017-07-08 | Outpatient (REF) | payer MEDICARE, OTHER ==
[~2017-07-08] MED LIST changes: -ARIC10TA PO; +ARIC1TAB2 PO; +ASPI-156 PO; -ASPI-85 PO; +ASPI325T24 PO; -ASPI32ECTA PO; -FURO1TAB15 PO; +FURO80TA2 PO; +LEVA1TAB PO; +LISI-538 PO; -METF500T PO; +METF500T13 PO; -METO-207 PO; +METO1TAB7 PO; -METO50TA2 PO; +METO50TA7 PO; +NYST1POW9 TOP; +TERB250T12 PO; -TERB250T57 PO; -ZETI10TA2 PO; +ZETI10TA30 PO
[2017-07-08 16:14] LABS: FERRITIN 39 NG/ML (26-388); PERCENT SATURATION 28.7 % (19.7-50.0); TOTAL IRON BINDING CAPACITY 338 UG/DL (250-450)
[2017-07-08 16:19] LABS: FOLATE > 24.0 NG/ML; VITAMIN B12 LEVEL 713 PG/ML
== END ==
LOC: M LAB REF 15:41
PROVIDERS: ATTEND Internal Medicine Nephrology
DX: D64.9 Anemia, unspecified (principal)

== ENCOUNTER 2018-03-12 13:07 | Outpatient (RCR) | payer MEDICARE, OTHER | END 2018-03-24 | LOC: M PT 13:07 | DX: Z51.89 Encounter for other specified aftercare (principal); I89.0 Lymphedema, not elsewhere classified | CPT/HCPCS: 97163 ==

== ENCOUNTER → 2018-07-07 | Outpatient (CLI) | payer MEDICARE, OTHER ==
[~2018-07-07] MED LIST changes: -ARIC1TAB2 PO; -ASPI-156 PO; -ASPI325T24 PO; -CIAL2.5T PO; -FISH120012 PO; -FURO40TA2 PO; -FURO80TA2 PO; +GASTROGRAFIN SOLUTION 30ML (Q9963) As Ordered; +ISOVUE-370 76% 100ML VIAL (Q9967) As Ordered; -LEVA1TAB PO; -LISI-538 PO; -LISI40TAB PO; -MEMA1TAB2 PO; -METF500T13 PO; -METO1TAB7 PO; -METO50TA7 PO; -METO5TA PO; -NYST10PW TOP; -NYST1POW9 TOP; -POTA20TA PO; -SOOTDRO2 OU; -TERA10CA3 PO; -TERB250T12 PO; -VITA200038 PO; -ZETI10TA30 PO; -ZOCO20TA PO; -[UNRECOGNIZED DRUG - CODE] PO; -hytrin
== END ==
LOC: M RAD 09:41
DX: C91.10 Chronic lymphocytic leukemia of B-cell type not having achieved remission (principal); K57.30 Diverticulosis of large intestine without perforation or abscess without bleeding; N28.1 Cyst of kidney, acquired
CPT/HCPCS: Q9963

== ENCOUNTER → 2020-04-15 | Outpatient (REF) | payer MEDICARE, OTHER ==
[~2020-04-15] MED LIST changes: +ARIC1TAB2 PO; +ASPI-255 PO; +ASPI81TA28 PO; +CIAL2.5T PO; +FISH120012 PO; +FISH5CAP PO; +FURO40TA2 PO; +FURO80TA2 PO; -GASTROGRAFIN SOLUTION 30ML (Q9963) As Ordered; -ISOVUE-370 76% 100ML VIAL (Q9967) As Ordered; +KLOR20TA42 PO; +LECI1CAP2 PO; +LEVA250T13 PO; +LISI-538 PO; +LISI40TA PO; +MEMA10TA19 PO; +METF500T13 PO; +METO1TAB7 PO; +METO50TA7 PO; +METO5TA PO; +NYST-15 TOP; +NYST1POW9 TOP; +SOOTDRO2 OU; +TERA10CA3 PO; +TERB250T12 PO; +VITA200038 PO; +ZETI10TA16 PO; +ZOCO20TA PO; +hytrin
[2020-04-15 14:41] LABS: HEMATOCRIT 41.6 % (42.0-52.0); HEMOGLOBIN 13.7 g/dl (13.5-17.5); MEAN CORPUSCULAR HEMOGLOBIN 32.5 pg (27.0-33.0); MEAN CORPUSCULAR HGB CONC 32.9 g/dl (32.0-36.5); MEAN CORPUSCULAR VOLUME 98.8 fl (80.0-96.0); PLATELET COUNT, AUTOMATED 145 10^3/uL (150-450); RED BLOOD COUNT 4.21 10^6/uL (4.30-6.10); WHITE BLOOD COUNT 13.9 10^3/uL (4.0-10.0)
[2020-04-15 15:11] LABS: HEMOGLOBIN A1c 5.9 %
[2020-04-15 15:16] LABS: ALBUMIN 3.7 GM/DL (3.2-5.2); BILIRUBIN,TOTAL 0.6 MG/DL (0.2-1.0); CALCIUM LEVEL 8.6 MG/DL (8.8-10.2); CHOLESTEROL RISK RATIO 2.577 (<5); CREATININE FOR GFR 1.5 MG/DL (0.70-1.30); GLOMERULAR FILTRATION RATE 46.9 (>35); POTASSIUM SERUM 4.1 MEQ/L (3.5-5.1); THYROID STIMULATING HORMONE 2.88 uIU/ML (0.358-3.740); TOTAL PROTEIN 6.6 GM/DL (6.4-8.2)
== END ==
LOC: M LAB REF 09:30
PROVIDERS: ATTEND Family Medicine
DX: I25.10 Atherosclerotic heart disease of native coronary artery without angina pectoris (principal); I10 Essential (primary) hypertension; E78.5 Hyperlipidemia, unspecified; E11.40 Type 2 diabetes mellitus with diabetic neuropathy, unspecified